=== PATIENT | male | born 1935 | race Caucasian/White ===

== ENCOUNTER 2018-01-28 18:30 | Inpatient (IN) | payer MEDICARE, OTHER ==
[~2018-01-28 18:30] MED LIST: ISOVUE-370 76%-LOCM 1 ML ONE
[2018-01-28 19:29] LABS: #Eosinphils 0.3 thou/uL (0.0-0.7); #Lymphocytes 1.3 thou/uL (1.20-3.40); #Monocytes 1.2 thou/uL (0.11-0.59); #Neutrophils 5.6 thou/uL (1.40-6.50); %Basophils 0.4 % (0.0-1.0); %Eosinophils 3.3 % (0.0-10.0); %Lymphocytes 15.9 % (21.0-51.0); %Monocytes 14.3 % (0.0-10.0); %Neutrophils 66.2 % (42.0-75.0); Hemoglobin 14.2 g/dL (14.0-18.0); Mean Corpuscular Hemoglobin 30.7 pg (27.0-31.0); Mean Corpuscular Volume 90.4 fL (78.0-98.0); Mean Platelet Volume 8.3 fL (7.4-10.4); Platelet Count 232 thou/uL (130-400); RBC Distribution Width 12.3 % (11.5-14.5); Red Blood Cell (RBC) Count 4.64 mill/uL (4.70-6.10); White Blood Cell (WBC) Count 8.4 thou/uL (4.8-10.8)
[2018-01-28 19:54] LABS: CKMB 3.6 ng/mL (0-6.6); Troponin I 0.011 ng/mL (< 0.028)
--- NOTE | 2018-01-28 20:07 | RAD ---
RIGHT FOOT THREE VIEWS: 01/28/18 HISTORY: Swelling to right foot for the last seven days. There is some arthritic changes of the first metatarsophalangeal joint. There appears to be some soft tissue calcification adjacent to this area. This may represent some changes related to gout, althoug h I do not see gross bony erosive change. There are some vascular calcifications noted. Calcaneal sp ur at the plantar fascia is noted. IMPRESSION: 1. Atherosclerosis. 2. No acute changes. 3. Arthritic changes of the first metatarsal phalangeal joint, possibly related to gout. POS: [facility]
[2018-01-28 20:09] LABS: ALT (SGPT) 97 U/L (8-55); Albumin 3.3 g/dL (3.4-4.8); Alkaline Phosphatase 354 U/L (40-150); Anion Gap 13 mmol/L (10-20); BUN (Urea Nitrogen) 23 mg/dL (8.4-25.7); Bilirubin, Total 0.9 mg/dL (0.2-1.2); Calc. Creatinine Clearance 0 mL/min (70-130); Calcium 8.8 mg/dL (7.8-10.44); Carbon Dioxide 19 mmol/L (23-31); Chloride 106 mmol/L (98-107); Estimated GFR-MDRD 59; Globulin 4.1 g/dL (2.4-3.5); Glucose 127 mg/dL (83-110); Potassium 4.3 mmol/L (3.5-5.1); Protein, Total 7.4 g/dL (5.8-8.1); Sodium 134 mmol/L (136-145)
--- NOTE | 2018-01-28 20:10 | RAD ---
CHEST PORTABLE: 01/28/18 HISTORY: Increasing shortness of breath. Heart size appears slightly enlarged. There are atherosclerosis changes or the aorta. No overt failur e seen. Interstitial markings are slightly increased but no definitely changed since a 03/20/16 study. IMPRESSION: Suggestion of some mild cardiomegaly. Mild vascular prominence but no definite overt pulmonary edema change. Interstitial changes were felt to be chronic in nature. POS: [facility]
[2018-01-28 20:20] LABS: AST (SGOT) 125 U/L (5-34)
[2018-01-28 20:53] LABS: Analyzer IN Cardio ER; Base Excess (BEa) -2.4 mEq/L (-2.0 to +3.0); CO2 Tension 28.5 mmHg (35.0-45.0); Calcium, Ionized 1.15 mmol/L (1.12-1.30); Carboxyhemoglobin (COHb) 0.5 gm% (0.0-3.0); Hemoglobin (Hb) 14.9 g/dL (14.0-18.0); O2 Tension (PaO2) 77.5 mmHg (> 60.0); Potassium - ABG Lab 3.96 mmol/L (3.70-5.30); pH, Arterial 7.46 (7.35-7.45)
[2018-01-28 20:54] LABS: ALV-art Gradient 36.605 (0-20)
--- NOTE | 2018-01-28 22:33 | CT ---
CT ANGIOGRAM OF THE CHEST: 01/28/18 COMPARISON: None available. HISTORY: Shortness of breath, swelling of right foot. TECHNIQUE: Axial CT imaging obtained 2.5 mm intervals from thoracic inlet through upper abdomen with IV contrast using a CT angiogram protocol. Coronal and oblique sagittal 3D reformatted imaging obtained. FINDINGS: Evaluation of the upper abdomen demonstrates splenic granulomata. There is scattered atherosclerotic calcifications of the imaged abdominal aorta and its branches. Detailed assessment of the upper abdom en is limited by motion. There is a small sliding type hiatal hernia. There is a moderate/large pericardial effusion measuring 3.8 cm in transverse dimension on the left. 1.6 cm in transverse dimension on the right, and 1.3 cm in craniocaudal dimension inferiorly. There is no axillary lymphadenopathy. Mild carolyn prominence in the prevascular space measures 1.1 cm short axis dimension. Mild left hilar carolyn prominence measures 1.3 cm. Motion artifact limits assessment of the distal pulmonary artery supplying bilateral lower lobes. The re is also motion artifact limiting assessment of the main pulmonary artery and the left main pulmona ry artery. There is no discrete filling defect seen to suggest the presence of a central pulmonary ar terial embolism. Coronary arterial calcification is noted as is atherosclerotic calcification of the aortic arch and t he descending thoracic aorta. Trace bilateral pleural effusions are noted. Assessment of the lung parenchyma, particularly inferior ly, is limited on the basis of motion artifact. No discrete mass lesion or pulmonary parenchymal nodule noted in the left upper lobe. Linear density in lingula suggests scar and/or volume loss. There is extensive interstitial and alveolar opacity involving the posteromedial aspect of the left l ower lobe, particularly the superior segment of the left lower lobe. Granulomata area noted in the ri ght lower lobe. Minimal focal area of ground glass opacity and interstitial linear density noted in m edial right upper lobe. There is extensive degenerative change noted within the imaged spine with multilevel disc space narro wing, degenerative end plate change and vacuum disc formation. IMPRESSION: 1. No evidence for pulmonary embolism. 2. Pulmonary parenchymal opacity noted within left lower lobe suggesting infectious pneumonitis/ aspiration. Patchy opacities are also noted in right upper lobe suspicious for infectious pneumonitis . 3. Moderate/large pericardial effusion. 4. Small bilateral pleural effusions. 5. Extensive atherosclerotic calcification of the coronary arteries. POS: [facility]
[2018-01-29] MEDS ORDERED: HYDROcodone/Acetaminophen 5/325 mg Tablet PO PRN ×2 (01:00)
[2018-01-29] MEDS ORDERED: Ondansetron ODT 4 MG TAB SL PRN (01:00)
[2018-01-29] MEDS ORDERED: Ondansetron PF 4 MG/2 ML Vial IVP PRN (01:00)
[2018-01-29] MEDS ORDERED: Acetaminophen 325 MG TAB PO PRN ×2 (01:00→01:08)
[2018-01-29] MEDS ORDERED: Ondansetron ODT 4 MG TAB PO PRN (01:08)
[2018-01-29] MEDS: Guaifenesin DM 100-10/5 ML UDCUP PO PRN (01:53)
--- NOTE | 2018-01-29 02:42 | PDOC.FPRHP ---
- History of Present Illness Chief Complaint: SOB and cough History of Present Illness: Patient is an 82YO gentleman with no significant PMH who presented to the ED after urging from his children with a CC of progressively worsening and persistent SOB and productive cough for the last 10 days. Per the patient's son , the patient has had worsening SOB with exertion for the last 3-4 months and has never had any issues like that before. Per the son the patient has always been very active and has never had any health issues. Regarding his more recent SOB and productive cough, the son reports that the patient has had URI symptoms that began ~10 days ago that have not improved with mucinex at home. The patient denies any chest pain, fever/chills, N/V, decreased appetite or weakness or fatigue. He stated that his SOB is worsened by laying flat and improves with sitting up and leaning forward. The patient does report that his daughter who he saw around [facility] was also ill. In addition, the patient reports pain and swelling in his right foot that began a few days ago. He states that the pain has been so severe he has been unable to bear weight on his foot. He denies any known mechanism of injury or any h/o gout. Also denies any systemic symptoms like fever/chills, N/V, or decreased PO intake/fatigue. ED Course: ED: 1 Duoneb treatment - Allergies/Adverse Reactions Allergies Allergy/AdvReac Type Severity Reaction Status Date / Time No Known Drug Allergies Allergy Verified 01/04/13 20:02 - Home Medications Medication Instructions Recorded Confirmed Type No Known 01/04/13 01/29/18 History - History PMHx: possible HTN, not on any meds at home PSHx: none FHx: Father- CAD, [place] @ age 67 Social: Lives at home alone w/ pet dog. 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 No tobacco, EtOH, or drug use. - Vital signs BP: 160/71 HR: 82 RR: 28 Tmax: 99.1F Pox: 95% on RA Wt: 91.943 kg - Physical Exam Constitutional: NAD, awake, alert and oriented, well developed HEENT: normocephalic and atraumatic, conjunctiva clear, grossly normal vision, grossly normal hearing, normal nasal mucosa, MMM, oropharynx clear Neck: supple, FROM, no JVD, no bruits Heart: RRR, pulses present -Heart: distant heart sounds w/ no pitting edema present Lungs: no respiratory distress, good air movement, no rales/rhonchi -Lungs: Expiratory wheezing throughout Abdomen: soft, non-tender, bowel sounds present Musculoskeletal: normal structure, ROM grossly normal Neurological: no focal deficit -Neurological: symmetric facial movements Skin: good turgor, no jaundice -Skin: edema and erythema overlying the right first metacarpophalangeal joint with TTP Heme/Lymphatic: no unusual bruising or bleeding Psychiatric: normal mood and affect, good judgment and insight -Psychiatric: slightly impaired recent and remote memory but oriented to person, place, and time FMR H&P: Results - Labs Result Diagrams: 01/28/18 19:23 01/29/18 04:49 Lab results: WBC 8.4 thou/uL (4.8-10.8) 01/28/18 19:23 Hgb 14.2 g/dL (14.0-18.0) 01/28/18 19:23 Hct 41.9 % (42.0-52.0) L 01/28/18 19:23 MCV 90.4 fL (78.0-98.0) 01/28/18 19:23 Plt Count 232 thou/uL (130-400) 01/28/18 19:23 Neutrophils % 66.2 % (42.0-75.0) 01/28/18 19:23 ABG pH 7.46 (7.35-7.45) H 01/28/18 20:45 ABG pCO2 28.5 mmHg (35.0-45.0) L 01/28/18 20:45 ABG pO2 77.5 mmHg (> 60.0) H 01/28/18 20:45 Sodium 134 mmol/L (136-145) L 01/28/18 19:23 Potassium 4.3 mmol/L (3.5-5.1) 01/28/18 19:23 Chloride 106 mmol/L (98-107) 01/28/18 19:23 Carbon Dioxide 19 mmol/L (23-31) L 01/28/18 19:23 BUN 23 mg/dL (8.4-25.7) 01/28/18 19:23 Creatinine 1.17 mg/dL (0.6-1.3) 01/28/18 19:23 Glucose 127 mg/dL (83-110) H 01/28/18 19:23 Calcium 8.8 mg/dL (7.8-10.44) 01/28/18 19:23 Total Bilirubin 0.9 mg/dL (0.2-1.2) 01/28/18 19:23 AST 125 U/L (5-34) H 01/28/18 19:23 ALT 97 U/L (8-55) H 01/28/18 19:23 Alkaline Phosphatase 354 U/L (40-150) H 01/28/18 19:23 CK-MB (CK-2) 3.6 ng/mL (0-6.6) 01/28/18 19:23 B-Natriuretic Peptide 136.3 pg/mL (0-100) H 01/28/18 19:23 Serum Total Protein 7.4 g/dL (5.8-8.1) 01/28/18 19:23 Albumin 3.3 g/dL (3.4-4.8) L 01/28/18 19:23 - EKG Interpretation EKG: sinus arrthymia, possible sick sinus syndrome - Radiology Interpretation CT scan - chest Status: report reviewed by me (- RUL & LLL possible infectious pneumonitis - B/ L pleural effusions - moderate to severe pericardial effusion) FMR H&P: A/P - Problem List (1) Aspiration pneumonitis Current Visit: Yes Status: Acute Code(s): J69.0 - PNEUMONITIS DUE TO INHALATION OF FOOD AND VOMIT (2) Pericardial effusion without cardiac tamponade Current Visit: Yes Status: Acute Code(s): I31.3 - PERICARDIAL EFFUSION ( NONINFLAMMATORY) (3) HTN (hypertension) Current Visit: Yes Status: Suspected Code(s): I10 - ESSENTIAL (PRIMARY) HYPERTENSION (4) Gout Current Visit: Yes Status: Suspected Code(s): M10.9 - GOUT, UNSPECIFIED Qualifiers: Gout site: foot Gout etiology: idiopathic Chronicity: acute Laterality : right Qualified Code(s): M10.071 - Idiopathic gout, right ankle and foot (5) Transaminitis Current Visit: Yes Status: Acute Code(s): R74.0 - NONSPEC ELEV OF LEVELS OF TRANSAMNS & LACTIC ACID DEHYDRGNSE (6) Hyponatremia Current Visit: Yes Status: Acute Code(s): E87.1 - HYPO-OSMOLALITY AND HYPONATREMIA - Plan 82YOM w/ no significant PMH who presented to the ED with a CC or persistent cough and SOB for the last 2 weeks who was found to have possible aspiration pneumonitis as well as a pericardial effusion and pulmonary edema on chest CTA. Pericardial effusion: - Moderate to large pericardial effusion noted on chest CTA. - Patient has been HD stable since admission and ECG showed diffuse ST elevation consistent w/ pericarditis. - Could be 2/2 a viral illness or undiagnosed malignancy. - Will plan to consult CV surgery in the AM for need for possible window and to evaluate fluid to ascertain a certain etiology for the effusion. - Will continue to monitor vitals closely. Suspected aspiration pneumonitis: - RUL & LLL pneumonitis also noted on CT. - Thus, this in conjunction with the patient's productive cough and diffuse wheezing led us to go ahead and start empiric abx with IV unasyn. - Will keep NPO pending a speech eval since aspiration was a possible cause for infection. - Will give PRN robitussin and tessalon for associated cough. Pulmonary edema: - Also seen on chest CT. Could be 2/2 underlying infection and/or underlying heart pathology. - Echo pending for this AM. - s/p 40mg IV lasix overnight. - IV Abx started for suspected infection. Elevated BP: - Likely undiagnosed HTN. - Will continue to monitor and start medications as indicated. Transaminitis: - LFTs elevated on admission. - Will continue to monitor w/ QD bloodwork. - Could be 2/2 NAFLD but will order hepatitis panel, RPR, and HIV as well to r/ o any underlying infectious etiology. Elevated Cr: - Cr slightly elevated at 1.13 on admission with unknown baseline. - Likely some component of CKD given age and likely uncontrolled HTN. - Will continue to monitor and dose meds as appropriate. Gout: - Uric acid pending. - Will start on TOR indomethacin. FMR H&P: Upper Level - Pertinent history 82 yo M with no significant PMHx presents with cc of worsening shortness of breath and cough over the last couple of weeks. He reports that his cough has been keeping him up more and more at night and worsening to the point his children encouraged him to come in. He has been taking Mucinex which per family , seemed to make him feel a little funny. He hasn't taken his temp but endorses subjective fever and chills. He does not go to the doctor and takes an aspirin every now and then but nothing else. He also endorses some R foot swelling that has acutely worsened over the last couple of days. He denies any history of gout and does not recall any injury to that foot. He endorses eating a lot of hamburgers recently. - Pertinent findings VSS, slightly hypertensive and HR irregularly irregular Gen: awake, alert, oriented x3 HEENT: atraumatic, normocephalic, MMM, no JVD CV: irregularly irregular rhythm, no murmur noted, heart sounds slightly distant at upper sternal borders RESP: diffuse expiratory wheezing ABD: soft, nontender, nondistended EXT: RLE with notable edema at great MCP joint and surrounding erythema - Plan Date/Time: 01/29/18 0240 82 yo M with no PMHx here with SOB 2/2 possible aspiration pneumonitis and pericardial effusion 1. Pericardial effusion: incidentally found on CTA, hemodynamically stable but notable in size. Will consult CT surg in the morning or sooner if any indication of hemodynamic instability. 2. Aspiration pneumonitis: Also noted on CT. Productive cough and diffuse wheezing. Will start antibiotics and recommend speech eval prior to diet order 3. Elevated BP: Likely underlying HTN. Continue to monitor and discuss starting meds as indicated 4. Transaminitis: Continue to monitor. Possible fatty liver 5. Elevated Cr: Unknown baseline. Likely some component of CKD. Continue to monitor and dose meds as appropriate 6. Gout: Uric acid pending. Will start on TOR indomethacin. I, Leydi Marvin MD, PGY-3, have evaluated this patient and agree with findings/ plan as outlined by strategy intern resident. Pertinent changes/additions are listed here. Attending Addendum - Attending Addendum Date/Time: 01/29/18 1116 I personally evaluated the patient and discussed the management with Dr. Fry. I agree with the History, Examination, Assessment and Plan documented above with any addition or exceptions noted below.
[2018-01-29 02:47] VITALS: BMI 29.0
[2018-01-29] MEDS ORDERED: Furosemide 40 MG/4 ML VIAL SLOW IVP SCH ×2 (03:00→16:30)
[2018-01-29] MEDS ORDERED: Furosemide 20 MG/2 ML VIAL SLOW IVP SCH (03:45)
[2018-01-29 05:25] LABS: Phosphorus 3.4 mg/dL (2.3-4.7)
[2018-01-29 05:26] LABS: ALT (SGPT) 81 U/L (8-55); AST (SGOT) 81 U/L (5-34); Albumin 3.4 g/dL (3.4-4.8); Alkaline Phosphatase 340 U/L (40-150); Anion Gap 12 mmol/L (10-20); BUN (Urea Nitrogen) 20 mg/dL (8.4-25.7); Bilirubin, Total 1.2 mg/dL (0.2-1.2); Calc. Creatinine Clearance 57 mL/min (70-130); Calcium 9.1 mg/dL (7.8-10.44); Carbon Dioxide 25 mmol/L (23-31); Chloride 104 mmol/L (98-107); Estimated GFR-MDRD 55; Globulin 3.9 g/dL (2.4-3.5); Glucose 98 mg/dL (83-110); Potassium 3.5 mmol/L (3.5-5.1); Protein, Total 7.3 g/dL (5.8-8.1); Sodium 137 mmol/L (136-145); Uric Acid 6.1 mg/dL (3.5-7.2)
[2018-01-29 05:34] LABS: Thyroid Stimulating Hormone 3.7881 uIU/mL (0.35-4.94)
[2018-01-29] MEDS: Ampicillin/Sulbactam 1.5 GM in Sodium Chloride 0.9% 100 ML IVPB SCH ×3 (06:33→18:10)
[2018-01-29] MEDS: Enoxaparin Sodium 40 MG/0.4 ML SYRINGE SC SCH (09:08)
[2018-01-29] MEDS: Indomethacin 25 mg Capsule PO SCH ×3 (09:09→21:44)
[2018-01-29 10:27] LABS: Syphilis Antibody Nonreactive (Nonreactive); Syphilis Antibody Index 0.04 S/CO (<1.00 Non-Reactive)
[2018-01-29 10:30] LABS: HBCM Index 0.05 S/CO (0-0.79); HBSAg Index 0.27 S/CO (0-0.99); HIV (1/2) Antibody/Antigen Non-Reactive (NonReactive); HIV 1/2 INDEX 0.09 S/CO (<1.00); Hep A IgM AB Non-Reactive (NonReactive); Hep A IgM S/CO 0.18 S/CO (0-0.79); Hep B Surf Ag Non-Reactive S/CO (NonReactive); Hep C IgG Ab Non-Reactive (NonReactive); Hep C Index 0.04 S/CO (0-0.79); Hepatitis B Core IgM Abs Non-Reactive (NonReactive)
[2018-01-29] MEDS: Benzonatate 100 MG CAP PO PRN (18:09)
--- NOTE | 2018-01-29 18:48 | CON ---
DATE OF CONSULTATION: 01/29/2018 REASON FOR CONSULTATION: Pericardial effusion. HISTORY OF PRESENT ILLNESS: Mr. Hernandez is a pleasant 82-year-old white gentleman, who comes to the hospital for shortness of breath and cough. He has noticed for the last 10 days upper respiratory symptoms. Eventually, he was also becoming more short of breath for the last few months. This got to the point where his family saw him over the and really wanted him to come in for evaluation, he refused, however, his shortness of breath got worse, so he was brought in for further evaluation. He actually called 911, who arrived at his house and brought him in. In the ER, he was evaluated with a CT of the chest, showed pneumonitis in the left lower lobe consistent with an acute infectious process, but he also was found to have [id number] sized pericardial effusions and Cardiology being consulted. He also was found to have swelling in his right foot, which was consistent with a gouty attack. PAST MEDICAL HISTORY: None. He may have had hypertension in the past, but he is not on any medications for anything. PAST SURGICAL HISTORY: None. OUTPATIENT MEDICATIONS: None. ALLERGIES: NO KNOWN DRUG ALLERGIES. FAMILY HISTORY: Father with an HI at age 67, otherwise noncontributory. SOCIAL HISTORY: No alcohol, tobacco, or drugs. Retired. Lives alone at home. Completely independent. REVIEW OF SYSTEMS: A 12-point review of systems is negative unless stated in the history of present illness. PHYSICAL EXAMINATION: VITAL SIGNS: Temperature 98.2, pulse 71, respiratory rate 16, satting 94% on room air, and blood pressure 151/74. GENERAL: Awake, alert, oriented x3, in no distress. HEENT: Normocephalic and atraumatic. NECK: Supple. LUNGS: Clear. CARDIOVASCULAR: S1 and S2. Distal heart sounds, but no murmurs. ABDOMEN: Soft. Positive bowel sounds. EXTREMITIES: 1+ edema. There is marked erythema on the hallux joint on the right foot, exquisitely tender to minimal palpation. SKIN: Warm and dry. LABORATORY DATA: Laboratory work was reviewed. White count of 8.4, hemoglobin of 14, hematocrit of 41, platelet count of 232. Coags; D-dimer was elevated. ABG was reviewed. Chemistry was reviewed, sodium 137, potassium 3.5, chloride of 104, carbon dioxide of 25, anion gap of 12, BUN of 20, creatinine 1.26, GFR of 55, glucose of 98, calcium of 9.1, phosphorus of 3.4, and magnesium of 2.0. AST of 81, ALT of 81, alkaline phosphatase of 340. Troponin was negative x1. BNP was 136, albumin of 3.4, procalcitonin was normal, TSH was normal. Serology; nonreactive for hepatitis A, B, or C; HIV was nonreactive; syphilis was nonreactive. Echocardiogram was reviewed earlier today. It showed mildly reduced LV function , 45-50%, grade 2/3 diastolic heart failure. There was a large pericardial effusion with no hemodynamic evidence of tamponade. CT of the chest was reviewed. There is [id number] pericardial effusion. There is no evidence of pulmonary embolism. There is parenchymal opacity on the left lower lobe suggestive of an infectious pneumonitis or aspiration. Small bilateral pleural effusions and atherosclerotic calcifications of the coronary arteries. ASSESSMENT: 1. Pericardial effusion: No tamponade physiology. This process has been going on for some time now, most likely related to his acute infectious process. 2. Reduced ejection fraction: He will need ischemic workup once better from the lung perspective. He has chronic calcifications in the CT of the chest as well as mildly reduced EF with inferior hypokinesis. More than likely, he has significant coronary artery disease. 3. Left lower lobe pneumonia/pneumonitis/aspiration. Per primary team, we are ordering antibiotics. PLAN: 1. Continue to monitor on telemetry. Continue to monitor vital signs closely. Currently, he is not in tamponade. He does not have tamponade physiology. I would recommend against doing window for now, we will monitor every day and we will decide depending on his clinical evolution. I would agree to give 1 dose of IV Lasix to see if a little bit of diuresis makes his breathing a little bit better, although his pleural effusions are minimal if any. More than likely, his shortness of breath is coming from the pneumonitis. 2. If his blood pressure starts to come down, we will have the surgeons do a window, otherwise continue conservative therapy for now. 3. Coronary artery disease: Chronic calcifications in the CT. We will need workup as above. Thank you for allowing me to participate in the care of this patient. We will follow. Job ID: [id number] [facility]S HOSPITALRosalee
[2018-01-30] MEDS: Ampicillin/Sulbactam 1.5 GM in Sodium Chloride 0.9% 100 ML IVPB SCH ×2 (00:29→06:49)
--- NOTE | 2018-01-30 05:48 | PDOC.FM ---
- Subjective Subjective: Patient doing well this AM. No significant overnight events. Patient states his cough has improved. He feels like he is breathing better. Patient denies chest pain. He is in good spirits. - Objective MAR Reviewed: Yes Vital Signs & Weight: Vital Signs (12 hours) Temp Pulse Resp BP Pulse Ox 01/30/18 04:00 97.9 F 87 20 142/80 H 95 01/30/18 00:00 98.4 F 64 16 146/79 H 94 L 01/29/18 22:31 84 20 93 L 01/29/18 20:55 93 L 01/29/18 20:00 98.4 F 61 20 135/82 93 L 01/29/18 18:55 80 16 Weight Weight 91.943 kg I&O: 01/28/18 01/29/18 01/30/18 06:59 06:59 06:59 Intake Total 80 769 Balance 80 769 Result Diagrams: 01/28/18 19:23 01/29/18 04:49 EKG Reviewed by me: Yes Radiology Reviewed by me: Yes <Diana Castillo - Last Filed: 01/30/18 11:43> - Objective Vital Signs & Weight: Vital Signs (12 hours) Temp Pulse Resp BP Pulse Ox 01/30/18 15:35 97.7 F 69 16 160/60 H 94 L 01/30/18 11:41 97.9 F 82 16 150/77 H 96 01/30/18 10:39 82 16 01/30/18 09:30 82 152/79 H 01/30/18 08:50 99 01/30/18 08:00 97.8 F 63 16 188/79 H 99 01/30/18 07:13 68 24 H 01/30/18 04:00 97.9 F 87 20 142/80 H 95 Weight Weight 91.943 kg I&O: 01/29/18 01/30/18 01/31/18 06:59 06:59 06:59 Intake Total 80 769 Output Total 375 Balance 80 769 -375 Result Diagrams: 01/28/18 19:23 01/29/18 04:49 <Kar Antoine - Last Filed: 01/30/18 15:55> Phys Exam - Physical Examination Constitutional: NAD Alert and oriented x3 HEENT: PERRLA, moist MMs Neck: supple Respiratory: no wheezing Good air movement Irregular rhythm Gastrointestinal: soft Musculoskeletal: no edema, pulses present Neurological: non-focal, moves all 4 limbs Psychiatric: normal affect, A&O x 3 Deviation from normal: Right big toe podagra which is improved from yesterday <JonathanDiana - Last Filed: 01/30/18 11:43> Dx/Plan (1) Aspiration pneumonitis Code(s): J69.0 - PNEUMONITIS DUE TO INHALATION OF FOOD AND VOMIT Status: Acute (2) Pericardial effusion without cardiac tamponade Code(s): I31.3 - PERICARDIAL EFFUSION (NONINFLAMMATORY) Status: Acute (3) Hyponatremia Code(s): E87.1 - HYPO-OSMOLALITY AND HYPONATREMIA Status: Acute (4) Transaminitis Code(s): R74.0 - NONSPEC ELEV OF LEVELS OF TRANSAMNS & LACTIC ACID DEHYDRGNSE Status: Acute (5) Gout Code(s): M10.9 - GOUT, UNSPECIFIED Status: Suspected Qualifiers: Gout site: foot Gout etiology: idiopathic Chronicity: acute Laterality : right Qualified Code(s): M10.071 - Idiopathic gout, right ankle and foot (6) HTN (hypertension) Code(s): I10 - ESSENTIAL (PRIMARY) HYPERTENSION Status: Suspected - Plan Plan: 82YOM w/ no significant PMH who presented to the ED with a CC or persistent cough and SOB for the last 2 weeks who was found to have possible aspiration pneumonitis as well as a pericardial effusion and pulmonary edema on chest CTA. Pericardial effusion: - Moderate to large pericardial effusion noted on chest CTA. - Patient has been HD stable since admission and ECG showed diffuse ST elevation consistent w/ pericarditis. - Could be 2/2 a viral illness or undiagnosed malignancy. - Cardiology consulted; appreciate recs, patient HD stable and no evidence of cardiac tamponade on echocardiogram. Plan to monitor pericardial effusion as outpatient. Patient will also need ischemic workup at some point, as there is concern he has severe CAD based on calcifications on CT. - Continue indomethacin for treatment of pericarditis Suspected aspiration pneumonitis vs pneumonia: - RUL & LLL pneumonitis vs pneumonia noted on CT. - Pt improved on unasyn. Will transition to augmentin. - Speech therapy recs include mechanical soft diet and thick liquids to reduce risk of aspiration - Will give PRN robitussin and tessalon for associated cough. Pulmonary edema: - Also seen on chest CT. Could be 2/2 underlying infection and/or underlying heart pathology. - Echo showed EF 45-50%. - Additional dose of IV lasix given yesterday - BNP 136 Elevated BP: - Likely undiagnosed HTN. - Will continue to monitor and start medications as indicated. BP this AM 142/ 80. Transaminitis: - LFTs elevated on admission. - Hep panels and RPR negative. - Down trending; may have been secondary to recent viral illness Elevated Cr: - Cr slightly elevated at 1.13 on admission with unknown baseline. - Likely some component of CKD given age and likely uncontrolled HTN. Gout: - Uric acid level nml - Improved with indomethacin Dispo: Stable and improved from respiratory standpoint. Will await final recs from cardiology regarding next course of action from cardiac standpoint. <Diana Castillo - Last Filed: 01/30/18 11:43> (1) Aspiration pneumonitis Code(s): J69.0 - PNEUMONITIS DUE TO INHALATION OF FOOD AND VOMIT Status: Acute (2) Pericardial effusion without cardiac tamponade Code(s): I31.3 - PERICARDIAL EFFUSION (NONINFLAMMATORY) Status: Acute (3) HTN (hypertension) Code(s): I10 - ESSENTIAL (PRIMARY) HYPERTENSION Status: Suspected (4) Gout Code(s): M10.9 - GOUT, UNSPECIFIED Status: Suspected Qualifiers: Gout site: foot Gout etiology: idiopathic Chronicity: acute Laterality : right Qualified Code(s): M10.071 - Idiopathic gout, right ankle and foot (5) Transaminitis Code(s): R74.0 - NONSPEC ELEV OF LEVELS OF TRANSAMNS & LACTIC ACID DEHYDRGNSE Status: Acute (6) Hyponatremia Code(s): E87.1 - HYPO-OSMOLALITY AND HYPONATREMIA Status: Acute <Kar Antoine - Last Filed: 01/30/18 15:55> Attending Addendum - Attending Addendum Date/Time: 01/30/18 9213 I personally evaluated the patient and discussed the management with Dr. Castillo. I agree with the History, Examination, Assessment and Plan documented above with any addition or exceptions noted below. <Kar Antoine Last Filed: 01/30/18 15:55>
[2018-01-30] MEDS: Indomethacin 25 mg Capsule PO SCH ×3 (08:59→20:32)
[2018-01-30] MEDS: Enoxaparin Sodium 40 MG/0.4 ML SYRINGE SC SCH (08:59)
[2018-01-30] MEDS ORDERED: Prevnar 13-Val Conj/PF 0.5 ML SYRINGE IM ONE (09:00)
[2018-01-30] MEDS: Benzonatate 100 MG CAP PO PRN (09:04)
[2018-01-30] MEDS: Guaifenesin DM 100-10/5 ML UDCUP PO PRN (12:49)
--- NOTE | 2018-01-30 16:14 | PDOC.CTH ---
Cardiology Progress Note - Subjective He is doing much better. He feels better now. Breathing better but still coughing. - Objective Vital Signs Temp Pulse Resp BP Pulse Ox 01/30/18 16:07 69 16 01/30/18 15:35 97.7 F 69 16 160/60 H 94 L 01/30/18 11:41 97.9 F 82 16 150/77 H 96 01/30/18 10:39 82 16 01/30/18 09:30 82 152/79 H 01/30/18 08:50 99 01/30/18 08:00 97.8 F 63 16 188/79 H 99 01/30/18 07:13 68 24 H Weight 202 lb 11.2 oz 01/29/18 01/30/18 01/31/18 06:59 06:59 06:59 Intake Total 80 769 Output Total 375 Balance 80 769 -375 - Physical Examination General/Neuro: alert & oriented x3, NAD Neck: no JVD present Lungs: unlabored respirations, other: (crackles at left base. ) Heart: RRR Abdomen: NT/ND Extremities: other: (no edema) - Telemetry Telemetry Rhythm: NSR - Labs Result Diagrams: 01/28/18 19:23 01/29/18 04:49 Troponin/CKMB CK-MB (CK-2) 3.6 ng/mL (0-6.6) 01/28/18 19:23 Troponin I 0.011 ng/mL (< 0.028) 01/28/18 19:23 - Assessment/Plan 1. Pericardial effusion, possible pericarditis, no symptoms to suggest. 2. Mild cardiomyopathy EF at 45-50%, inferior hypokinesis suggestive of ischemia. 3. LLL pneumonia/pneumonitis. 4. CAD, coronary calcifications on CT chest. No ACS at this time. 5. Gout PLAN: - Continue abx per primary team. - Indomethacine for gout and possible pericarditis. - Will give one more dose of IV lasix today. - Will need ischemic work up and follow up of effusion in 4 weeks. - On discharge he will need to follow up in 4 weeks with me with repeat echo pre clinic. Will set this up with him next week.
[2018-01-30] MEDS ORDERED: Furosemide 40 MG/4 ML VIAL SLOW IVP SCH (16:30)
[2018-01-30] MEDS: Amoxicillin/Potassium Clav 875 MG TAB PO SCH (20:31)
--- NOTE | 2018-01-31 06:54 | PDOC.FM ---
- Subjective Subjective: Patient doing well this AM. No significant overnight events. He is excited to be going home. His cough and shortness of breath have improved. - Objective MAR Reviewed: Yes Vital Signs & Weight: Vital Signs (12 hours) Temp Pulse Resp BP Pulse Ox 01/31/18 06:23 73 12 01/31/18 04:00 97.5 F L 94 20 134/82 92 L 01/31/18 02:07 80 16 98 01/31/18 00:00 98.0 F 92 19 155/85 H 95 01/30/18 22:03 79 14 01/30/18 20:31 93 L 01/30/18 20:00 98.7 F 78 18 149/85 H 93 L Weight Weight 88.314 kg I&O: 01/29/18 01/30/18 01/31/18 06:59 06:59 06:59 Intake Total 80 769 520 Output Total 950 Balance 80 769 -430 Result Diagrams: 01/28/18 19:23 01/29/18 04:49 EKG Reviewed by me: Yes Radiology Reviewed by me: Yes <Diana Castillo - Last Filed: 01/31/18 12:39> - Objective Vital Signs & Weight: Vital Signs (12 hours) Temp Pulse Resp BP Pulse Ox 01/31/18 13:30 158/65 H 01/31/18 11:48 97.8 F 84 18 94 L 01/31/18 10:49 73 12 01/31/18 08:55 97.9 F 16 125/60 92 L 01/31/18 06:23 73 12 01/31/18 04:00 97.5 F L 94 20 134/82 92 L Weight Weight 88.314 kg I&O: 01/30/18 01/31/18 02/01/18 06:59 06:59 06:59 Intake Total 769 520 Output Total 950 Balance 769 -430 Result Diagrams: 01/28/18 19:23 01/29/18 04:49 <Faith Mark - Last Filed: 01/31/18 14:31> Phys Exam - Physical Examination Constitutional: NAD HEENT: moist MMs Neck: supple Respiratory: no wheezing, clear to auscultation bilateral Irregular rhythm Gastrointestinal: soft, non-tender, no distention, positive bowel sounds Musculoskeletal: no edema, pulses present Neurological: non-focal, moves all 4 limbs Lymphatic: no nodes Psychiatric: normal affect, A&O x 3 Deviation from normal: Right first toe erythema and warmth improved <JonathanDiana - Last Filed: 01/31/18 12:39> Dx/Plan (1) Aspiration pneumonitis Code(s): J69.0 - PNEUMONITIS DUE TO INHALATION OF FOOD AND VOMIT Status: Acute (2) Pericardial effusion without cardiac tamponade Code(s): I31.3 - PERICARDIAL EFFUSION (NONINFLAMMATORY) Status: Acute (3) Hyponatremia Code(s): E87.1 - HYPO-OSMOLALITY AND HYPONATREMIA Status: Acute (4) Transaminitis Code(s): R74.0 - NONSPEC ELEV OF LEVELS OF TRANSAMNS & LACTIC ACID DEHYDRGNSE Status: Acute (5) Gout Code(s): M10.9 - GOUT, UNSPECIFIED Status: Suspected Qualifiers: Gout site: foot Gout etiology: idiopathic Chronicity: acute Laterality : right Qualified Code(s): M10.071 - Idiopathic gout, right ankle and foot (6) HTN (hypertension) Code(s): I10 - ESSENTIAL (PRIMARY) HYPERTENSION Status: Suspected - Plan Plan: 82YOM w/ no significant PMH who presented to the ED with a CC or persistent cough and SOB for the last 2 weeks who was found to have possible aspiration pneumonitis as well as a pericardial effusion and pulmonary edema on chest CTA. Pericardial effusion: - Moderate to large pericardial effusion noted on chest CTA. - Patient has been HD stable since admission and ECG showed diffuse ST elevation consistent w/ pericarditis. - Could be 2/2 a viral illness or undiagnosed malignancy. - Cardiology consulted; appreciate recs, patient HD stable and no evidence of cardiac tamponade on echocardiogram. Plan to monitor pericardial effusion as outpatient. Patient will also need ischemic workup at some point, as there is concern he has severe CAD based on calcifications on CT. Plan currently is for patient to follow with Dr. Fulton in 4 weeks to have ischemic workup done and repeat echo performed. Dr. Fulton's office is going to call patient next week to have this set up. - Continue indomethacin for treatment of pericarditis Suspected aspiration pneumonitis vs pneumonia: - RUL & LLL pneumonitis vs pneumonia noted on CT. - Pt improved on unasyn. Transitioned to augmentin yesterday. Will continue for additional 7 days. - Speech therapy recs include mechanical soft diet and thick liquids to reduce risk of aspiration - Will give PRN robitussin and tessalon for associated cough. Pulmonary edema: - Also seen on chest CT. Could be 2/2 underlying infection and/or underlying heart pathology. - Echo showed EF 45-50%. - Additional dose of IV lasix given yesterday - BNP 136 Elevated BP: - Likely undiagnosed HTN. - BP has been reasonably well controlled; follow up outpatient. Transaminitis: - LFTs elevated on admission. - Hep panels and RPR negative. - Down trending; may have been secondary to recent viral illness Elevated Cr: - Cr slightly elevated at 1.13 on admission with unknown baseline. - Likely some component of CKD given age and likely uncontrolled HTN. Gout of great toe on right: - Uric acid level nml - Improved with indomethacin Dispo: Stable and improved from respiratory standpoint. Patient is to follow up with cardiology in 4 weeks. Plan for d/c home today. <Diana Castillo - Last Filed: 01/31/18 12:39> Attending Addendum - Attending Addendum Date/Time: 01/31/18 1430 I personally evaluated the patient and discussed the management with Dr. Castillo. I agree with the History, Examination, Assessment and Plan documented above with any addition or exceptions noted below. The patient is ready to go home. He has been cleared by cardiology. <Faith Mark - Last Filed: 01/31/18 14:31>
[2018-01-31] MEDS: Amoxicillin/Potassium Clav 875 MG TAB PO SCH (08:59)
[2018-01-31] MEDS: Enoxaparin Sodium 40 MG/0.4 ML SYRINGE SC SCH (08:59)
[2018-01-31] MEDS: Indomethacin 25 mg Capsule PO SCH (08:59)
[2018-01-31] MEDS ORDERED: Docusate 100 MG CAP PO PRN (12:27)
[2018-01-31 13:40] VITALS: BP 158/65
--- NOTE | 2018-01-31 15:29 | EKG ---
Test Reason : Blood Pressure : / mmHG Vent. Rate : 092 BPM Atrial Rate : 092 BPM P-R Int : 154 ms QRS Dur : 092 ms QT Int : 358 ms P-R-T Axes : 042 010 038 degrees QTc Int : 442 ms Sinus rhythm with marked sinus arrhythmia with occasional , and consecutive Premature ventricular com plexes and Fusion complexes Abnormal ECG Confirmed by KARLA MURRAY DO ([id number]), electronic news gathering editor RHEA CASILLAS ([id number]) on 01/31/2018 3:28:49 PM Referred By: Confirmed By:KARLA MURRAY DO
[2018-01-31 15:44] VITALS: TEMP 97.9
[2018-01-31] MEDS ORDERED: Docusate 100 MG CAP PO SCH (21:00)
== END 2018-01-31 15:55 | disposition home or self-care (01) | DRG 178 ==
LOC: ERS 18:30 → 2SE 01-29 01:03 → OBSVTOIN 01-29 10:58
PROVIDERS: ADMIT Emergency Medicine; ATTEND Emergency Medicine
DX: J69.0 Pneumonitis due to inhalation of food and vomit (principal); I31.3 Pericardial effusion (noninflammatory); E87.1 Hypo-osmolality and hyponatremia; I42.9 Cardiomyopathy, unspecified; I10 Essential (primary) hypertension; M10.071 Idiopathic gout, right ankle and foot; R74.0 Nonspecific elevation of levels of transaminase and lactic acid dehydrogenase [LDH]; I25.10 Atherosclerotic heart disease of native coronary artery without angina pectoris; I25.84 Coronary atherosclerosis due to calcified coronary lesion; Z82.49 Family history of ischemic heart disease and other diseases of the circulatory system
CPT/HCPCS: 36415; 71045; 71275; 80053; 80074; 82553; 82805; 83735; 83880; 84100; 84145; 84443; 84484; 84550; 85025; 85379; 86780; 87389; 90471; 90662; 90670; 93005; 93306; 94640; G0008; G0009; G8996-GN-CI; G8997-GN-CI; G8998-GN-CI; J0295; J1650; J1940; J7050; J7620; Q0162

== ENCOUNTER 2018-02-09 15:35 | Outpatient (CLI) | payer OTHER ==
--- NOTE | 2018-02-09 17:38 | RAD ---
TWO VIEW CHEST: Comparison: 01-20-18 History: Pneumonia due to infectious organism. FINDINGS: There is mild patchy left basilar density with pleural based density, as well. Cardiac silhouette is mildly enlarged with mild prominence of central pulmonary vasculature. Vascular calcification is pres ent. There is osseous degenerative change. IMPRESSION: Mild patchy left basilar density which may relate to sequellae from pneumonia given clinical history. Adjacent pleural based density suggests small layering left pleural fluid. POS: C
== END 2018-02-09 15:36 | disposition home or self-care (01) ==
LOC: BICRAD 15:35
PROVIDERS: ATTEND Family Medicine
DX: J18.9 Pneumonia, unspecified organism (principal); R91.8 Other nonspecific abnormal finding of lung field
CPT/HCPCS: 71046

== ENCOUNTER 2018-10-20 18:41 | Emergency (ER) | payer OTHER ==
[~2018-10-20 18:41] MED LIST changes: +Iopamidol 370 76% 50 ML VIAL FS ONE
[2018-10-20 19:51] LABS: #Eosinphils 0.4 thou/uL (0.0-0.7); #Lymphocytes 1.4 thou/uL (1.20-3.40); #Monocytes 0.7 thou/uL (0.11-0.59); #Neutrophils 4.7 thou/uL (1.40-6.50); %Basophils 0.5 % (0.0-1.0); %Eosinophils 5.2 % (0.0-10.0); %Lymphocytes 19.5 % (21.0-51.0); %Monocytes 9.8 % (0.0-10.0); Hemoglobin 15.3 g/dL (14.0-18.0); Mean Corpuscular HGB CONC 34.6 g/dL (32.0-36.0); Mean Corpuscular Hemoglobin 31.1 pg (27.0-31.0); Mean Corpuscular Volume 89.9 fL (78.0-98.0); Mean Platelet Volume 7.7 fL (7.4-10.4); Platelet Count 175 thou/uL (130-400); Red Blood Cell (RBC) Count 4.94 mill/uL (4.70-6.10); White Blood Cell (WBC) Count 7.2 thou/uL (4.8-10.8)
[2018-10-20 20:12] LABS: ALT (SGPT) 16 U/L (8-55); AST (SGOT) 29 U/L (5-34); Albumin 3.9 g/dL (3.4-4.8); Alkaline Phosphatase 87 U/L (40-150); Anion Gap 15 mmol/L (10-20); BUN (Urea Nitrogen) 19 mg/dL (8.4-25.7); Bilirubin, Total 0.6 mg/dL (0.2-1.2); Calc. Creatinine Clearance 0 mL/min (70-130); Calcium 9.1 mg/dL (7.8-10.44); Carbon Dioxide 23 mmol/L (23-31); Chloride 101 mmol/L (98-107); Estimated GFR-MDRD 42; Globulin 3.7 g/dL (2.4-3.5); Glucose 93 mg/dL (83-110); Lipase 20 U/L (8-78); Potassium 4.9 mmol/L (3.5-5.1); Protein, Total 7.6 g/dL (5.8-8.1); Sodium 134 mmol/L (136-145)
[2018-10-20 20:21] LABS: Bilirubin Negative (Negative); Blood, Urine Negative (Negative); Clarity Clear (Clear); Glucose, Urine (Dipstick) Normal (Negative); Leukocyte Negative Leu/uL (Negative); Nitrite Negative (Negative); Protein, Urine (Dipstick) Negative (Neg-Trace); Urobilinogen Normal mg/dL (Less than 2)
[2018-10-20] MEDS ORDERED: Ondansetron PF 4 MG/2 ML Vial ONE (21:24)
[2018-10-20] MEDS ORDERED: Morphine 4 MG/ML VIAL ONE (21:24)
--- NOTE | 2018-10-21 00:01 | CT ---
CT of abdomen and pelvis: 10/20/2018 COMPARISON: CT abdomen and pelvis 01/04/[address] chest 01/28/2018 HISTORY: Right groin pain TECHNIQUE: Axial CT imaging at 5 mm intervals from lung bases through pubic symphysis with IV and ora l contrast. Coronal reformatted imaging obtained. FINDINGS: There is a moderate-sized pericardial effusion, decreased in size when compared to the 01/[address] The visualized lung bases are unremarkable. No free intraperitoneal air or fluid. Numerous splenic granulomata noted. The liver, gallbladder, pancreas, adrenal glands, and kidneys dem onstrate no acute findings. There is an inguinal hernia on the right containing fat as well as the appendix. The cecal apex exten ds into this right inguinal hernia. This hernia extends into the superior aspect of the right scrotal sac and measures approximately 2.5 cm in transverse dimension and at least 11 cm in craniocau obed dimension. There is diverticulosis of the sigmoid colon with no evidence for diverticulitis. No focal area of alana wel inflammatory change. No evidence for bowel obstruction or appendicitis. There is significant atherosclerotic calcification of the abdominal aorta and its branches. There is no lymphadenopathy noted in the abdomen or pelvis. Review of the osseous structures demonstrates degenerative change throughout the imaged spine. There is no worrisome lytic or blastic bone lesion. IMPRESSION: Inguinal hernia on the right containing fat as well as a portion of the cecal apex and th e appendix. No evidence for bowel inflammatory change or bowel obstruction. Numerous additional findings as detailed above.
== END 2018-10-21 00:23 | disposition home or self-care (01) ==
LOC: ERS 18:41
DX: K40.90 Unilateral inguinal hernia, without obstruction or gangrene, not specified as recurrent (principal)
CPT/HCPCS: 36415; 74177; 80053; 81003; 83690; 85025; J2270; J2405; Q9966; Q9967

== ENCOUNTER 2018-10-29 08:37 | Outpatient (CLI) | payer OTHER | END 2018-10-29 08:38 | disposition home or self-care (01) | LOC: LABBT 08:37 | PROVIDERS: ATTEND Surgery | DX: Z01.818 Encounter for other preprocedural examination (principal); K40.90 Unilateral inguinal hernia, without obstruction or gangrene, not specified as recurrent | CPT/HCPCS: 93005; 93010 ==

== ENCOUNTER 2018-11-01 11:46 | Inpatient (IN) | payer MEDICARE, OTHER ==
[2018-11-01 12:35] LABS: #Eosinphils 0.2 thou/uL (0.0-0.7); #Lymphocytes 1.5 thou/uL (1.20-3.40); #Monocytes 0.7 thou/uL (0.11-0.59); #Neutrophils 4.4 thou/uL (1.40-6.50); %Basophils 0.2 % (0.0-1.0); %Eosinophils 3.4 % (0.0-10.0); %Lymphocytes 21.9 % (21.0-51.0); %Monocytes 9.9 % (0.0-10.0); %Neutrophils 64.5 % (42.0-75.0); Hemoglobin 15.8 g/dL (14.0-18.0); Mean Corpuscular HGB CONC 34.1 g/dL (32.0-36.0); Mean Corpuscular Hemoglobin 31.1 pg (27.0-31.0); Mean Platelet Volume 7.7 fL (7.4-10.4); Platelet Count 191 thou/uL (130-400); RBC Distribution Width 12.3 % (11.5-14.5); Red Blood Cell (RBC) Count 5.08 mill/uL (4.70-6.10); White Blood Cell (WBC) Count 6.8 thou/uL (4.8-10.8)
[2018-11-01 12:57] LABS: ALT (SGPT) 16 U/L (8-55); AST (SGOT) 21 U/L (5-34); Alkaline Phosphatase 90 U/L (40-150); Anion Gap 12 mmol/L (10-20); BUN (Urea Nitrogen) 17 mg/dL (8.4-25.7); Bilirubin, Total 0.6 mg/dL (0.2-1.2); Calc. Creatinine Clearance 0 mL/min (70-130); Calcium 9.2 mg/dL (7.8-10.44); Carbon Dioxide 24 mmol/L (23-31); Chloride 105 mmol/L (98-107); Estimated GFR-MDRD 49; Globulin 2.9 g/dL (2.4-3.5); Glucose 82 mg/dL (83-110); Potassium 4.3 mmol/L (3.5-5.1); Protein, Total 6.9 g/dL (5.8-8.1); Sodium 137 mmol/L (136-145)
--- NOTE | 2018-11-01 13:30 | RAD ---
FRONTAL RADIOGRAPH CHEST: Date: 11/01/18 COMPARISON: 02/09/18. HISTORY: Chest pain. FINDINGS: Mild stable increased linear interstitial density and pulmonary hyperinflated. Atherosclerotic calcif ication of aortic arch noted. No pneumothorax, pleural fluid, focal consolidation, or alveolar edema. IMPRESSION: Stable appearance of the chest. POS: OFF
[2018-11-01] MEDS ORDERED: Aspirin Chewable 81 MG TAB ONE (14:18)
[2018-11-01] MEDS ORDERED: Ondansetron PF 4 MG/2 ML Vial IVP PRN (16:50)
[2018-11-01] MEDS ORDERED: Ondansetron ODT 4 MG TAB SL PRN (16:50)
[2018-11-01] MEDS ORDERED: Acetaminophen 325 MG TAB PO PRN (16:50)
[2018-11-01 16:52] VITALS: BMI 28.0
[2018-11-01 19:13] LABS: Troponin I Less than 0.010 ng/mL (< 0.028)
--- NOTE | 2018-11-01 23:10 | HP ---
PRIMARY CARE PHYSICIAN: Dr. Flaco Spence. CHIEF COMPLAINT: Chest pain and shortness of breath. HISTORY OF PRESENT ILLNESS: This is an 83-year-old patient of Dr. Flaco Spence and commissioning specialist Dr. Fulton, presents to the emergency department for the above complaints. The patient was recently found to have an inguinal hernia about 2 weeks ago here in the emergency department. He had scheduled repair with Dr. Benoit. During a preoperative evaluation, he was found to have abnormal EKG and recommended cardiac clearance. He was evaluated by Dr. Fulton, who recommended a heart catheterization, which was to be scheduled later on this week. Over the past few days, he has developed increasing chest pains and shortness of breath, worsened over the past 3 days. The patient and the son admitted him having on and off episodes of nausea and dizziness, which has been going on for several months, but seems to be worsening over the past 3 days. He has had more episodes of chest pain even at rest, shortness of breath with exertion and some numbness in his left arm that would come and go. He does admit to working hard outside in the heat over the past few weeks, even cutting his grass and helping neighbors cut their grass. He states he is drinking enough water and does not feel lightheaded while he is working, but worse while he is at rest. Of note, during an evaluation in January 2018, he was found to have abnormal echocardiogram with ejection fraction of 40-45%, as well as a large pericardial effusion. Followups were scheduled with Dr. Fulton, but uncertain if he had a followup echocardiogram since that time. PAST MEDICAL HISTORY: 1. Inguinal hernia. 2. Hypothyroidism, not treated at this time. 3. History of vertigo in the past. 4. Cardiomyopathy. 5. Pericardial effusion. MEDICATIONS: None. PAST SURGICAL HISTORY: Colonoscopy in 2013. Hospitalizations for bleeding polyp in 2013, pneumonia in 2018, dizziness in 2017. SOCIAL HISTORY: He is . He has children. He works on a farm. Nonsmoking and no alcohol. No drug use. Daily caffeine intake. FAMILY HISTORY: Father at 67 years of age of heart attack. Mother at 92 from pancreatic cancer. Brother at 83 from complications of smoking. REVIEW OF SYSTEMS: CONSTITUTIONAL: As per the history of present illness. He denies any recent illness or upper respiratory symptoms. HEENT: Denies headache, visual or hearing changes. CARDIAC: As per the history of present illness. He denies palpitations. Workup has been initiated by Dr. Fulton as an outpatient. PULMONARY: No cough. Occasional episodes of shortness of breath. No hemoptysis. GI: Denies nausea, vomiting, abdominal pain, melena, or hematochezia. : Some urinary issues at times, but no dysuria. No hematuria. NEUROLOGIC: Some weakness, some dizziness. Episodes of vertigo in the past. No seizures or syncope. MUSCULOSKELETAL: Denies joint pains. PSYCHIATRIC: Denies depression or anxiety. PHYSICAL EXAMINATION: VITAL SIGNS: Temperature 97.6, pulse of 58-67, respirations 20, and blood pressure 168/77. GENERAL: He is awake and alert. No acute distress. Speech is clear. HEENT: Mucosa is moist. NECK: Supple. No JVD, adenopathy, or bruits. HEART: Regular rate and rhythm without murmur to auscultation. LUNGS: Clear bilaterally. No wheeze, rales, or rhonchi. ABDOMEN: Positive bowel sounds. Soft, nontender, and nondistended. No hepatosplenomegaly. EXTREMITIES: 1+ pitting edema bilaterally. 2+ peripheral pulses. No calf tenderness. NEUROLOGIC: Cranial nerves 2 through 12 are grossly intact. Strength is 5/5 in upper and lower extremities. LABORATORY DATA: Sodium 137, potassium 4.3, chloride 105, CO2 of 24, BUN and creatinine are 17 and 1.39 with a GFR of 49, serum glucose of 82, calcium of 9.2. Troponin I 0.028 and 0.020. Albumin of 4.0. White blood cell count 6.8, hemoglobin and hematocrit 15.8 and 46.2, and platelets of 191. IMAGING DATA: Chest x-ray showed mild cardiomegaly. No other acute findings. Echocardiogram as reported from January 2018 revealed ejection fraction of 45-50%. Grade 2/3 diastolic dysfunction, inferior hypokinesis, moderately dilated left atrium, large pericardial effusion with no evidence of tamponade. ASSESSMENT AND PLAN: This is an 83-year-old gentleman with progressively worsening symptoms including shortness of breath and weakness. He does have a history of a pericardial effusion in January of 2018. 1. Pericardial effusion. We will repeat echocardiogram. Consult Cardiology for evaluation. 2. Cardiomyopathy. I will check BNP. May give trial of diuresis to see if he improves symptomatically. 3. Inguinal hernia. Continue followup with Dr. Benoit for repair once his cardiac status is stable. 4. Stage 3 chronic kidney disease. We will monitor closely and adjust medicines appropriately. 5. Code status. He desires full code. Job ID: [id number]
[2018-11-02] MEDS: cloNIDine 0.1 MG TAB PO PRN ×2 (01:31→19:54)
[2018-11-02] MEDS ORDERED: Iopamidol 370 76% 50 ML VIAL FS ONE (07:26)
[2018-11-02] MEDS ORDERED: Iopamidol 370 76% 100 ML VIAL ONE (07:26)
[2018-11-02 07:43] LABS: ALT (SGPT) 16 U/L (8-55); AST (SGOT) 23 U/L (5-34); Albumin 4.1 g/dL (3.4-4.8); Alkaline Phosphatase 93 U/L (40-150); Anion Gap 13 mmol/L (10-20); BUN (Urea Nitrogen) 19 mg/dL (8.4-25.7); Bilirubin, Total 0.7 mg/dL (0.2-1.2); Calc. Creatinine Clearance 48 mL/min (70-130); Calcium 9.5 mg/dL (7.8-10.44); Carbon Dioxide 26 mmol/L (23-31); Chloride 104 mmol/L (98-107); Estimated GFR-MDRD 48; Globulin 3.4 g/dL (2.4-3.5); Glucose 85 mg/dL (83-110); Protein, Total 7.5 g/dL (5.8-8.1); Sodium 139 mmol/L (136-145)
[2018-11-02 08:00] LABS: Free T4 (Free Thyroxine) 0.88 ng/dL (0.70-1.48); Thyroid Stimulating Hormone 9.2391 uIU/mL (0.35-4.94)
[2018-11-02] MEDS ORDERED: Prevnar 13-Val Conj/PF 0.5 ML SYRINGE IM ONE (09:00)
[2018-11-02] MEDS ORDERED: Verapamil 5 MG/2 ML VIAL ONE (10:40)
[2018-11-02] MEDS ORDERED: Heparin 10,000 UNITS/1 ML VIAL ONE (10:40)
[2018-11-02] MEDS ORDERED: Nitroglycerin 100MG/250ML BOT 250 ML ONE (10:41)
[2018-11-02] MEDS ORDERED: Lidocaine 1% (PF) 30 ML VIAL ONE (10:41)
--- NOTE | 2018-11-02 11:06 | CON ---
DATE OF CONSULTATION: 11/02/2018 REASON FOR CONSULTATION: Chest pain. HISTORY OF PRESENT ILLNESS: Mr. Hernandez is a pleasant 83-year-old white gentleman, who comes to the hospital for chest pain and tightness. He had been evaluated in the past. He had a pericardial effusion and reduced EF at 45% to 50%. He was offered a heart catheterization. This was actually set up, and for some reason, this was canceled. He never rescheduled. He recently was diagnosed with a hernia and Dr. Benoit was planning to surgery on him; however, he wanted surgical clearance because we had planned to do a heart catheterization before and he had an effusion and a low EF. I decided to repeat an echo before any surgeries were done and his EF is actually getting lower at 40% to 45% with inferior akinesis and he still has a [id number] sized pericardial effusion. Because of this, he was called and we had set up his heart catheterization for Friday at 7:00 a.m.; however, he developed chest pain yesterday, so he decided to come in for this. PAST MEDICAL HISTORY: 1. Inguinal hernia. 2. Hypothyroidism. 3. Vertigo. 4. Cardiomyopathy. 5. Pericardial effusion. OUTPATIENT MEDICATIONS: None. SURGICAL HISTORY: 1. Colonoscopy in 2013. 2. Pneumonia in 2018. SOCIAL HISTORY: No alcohol, tobacco, or drugs. FAMILY HISTORY: Father at 67 of a heart attack. Mother at 92 of pancreatic cancer. REVIEW OF SYSTEMS: A 12-point review of systems was done and was all negative unless stated in the history of present illness. PHYSICAL EXAMINATION: VITAL SIGNS: Temperature 97.9, pulse 52, respiratory rate 18, saturating 95% on room air, and blood pressure 133/59. GENERAL: Awake, alert, and oriented x3, in no distress. HEENT: Normocephalic and atraumatic. NECK: Supple. LUNGS: Clear. CARDIOVASCULAR: S1 and S2. No S3 or S4. No murmurs. ABDOMEN: Soft. Positive bowel sounds. EXTREMITIES: No edema. SKIN: Warm and dry. LABORATORY DATA: Laboratory work was reviewed. CBC with a white count of 6, hemoglobin of 15, hematocrit of 46, platelet count of 191. Chemistries are unremarkable except for creatinine of 1.4, but GFR was 48. Uric acid was at 8.7. Troponin is negative x2. BNP was 143. TSH was 9.2 with a free T3 of 2.6 and a free T4 of 0.88. Chest x-ray was reviewed. EKG was reviewed. Most recent echo was done last week on Friday. It showed EF of 40% to 45% with inferior akinesis and a moderate pericardial effusion. ASSESSMENT AND PLAN: Chest pain. Concern for angina. We will further risk stratify with a heart catheterization as he has reduced EF and regional wall motion abnormality, suggestive of coronary artery disease. We have spoken with him at length of the risks and benefits of the procedure. Risks including but not limited to stroke, SC, , bleeding, need for blood transfusion, limb loss, organ loss, need for emergent bypass surgery, the patient understands, verbalized understanding of this, and agrees to proceed. We also spoke about moderate sedation and he agrees. Further recommendations per results of coronary angiogram. Job ID: [id number] MTDD
[2018-11-02] MEDS ORDERED: Midazolam HCl 2 mg/2 ml Vial ONE (11:14)
[2018-11-02] MEDS ORDERED: Fentanyl 100 MCG/2 ML VIAL ONE (11:15)
[2018-11-02] MEDS ORDERED: DOPamine 400 MG/D5W 250 ML 250 ML ONE (11:39)
--- NOTE | 2018-11-02 11:46 | PRG ---
DATE OF SERVICE: 11/02/2018 SUBJECTIVE: Mr. Hernandez is resting comfortably in bed. He has no medical complaints of chest pain nor shortness of breath. OBJECTIVE: VITAL SIGNS: His blood pressure is 133/59, temperature 97.9, and O2 saturations 95% on room air. LUNGS: Clear. HEART: Reveals no murmur. LABORATORY DATA: His cardiac enzymes are negative x3. It is noted his TSH is slightly elevated at 9.2. Electrolytes reveal a mildly elevated creatinine at 1.4. IMPRESSION AND PLAN: History of dyspnea of unknown etiology. The patient has a previous history of pericardial effusion. He is being worked up to have an inguinal hernia surgery. At this point, the shortness of breath could be cardiac. However, there is no evidence of any acute cardiac status at this time. Further evaluation with Cardiology will be necessary. Job ID: [id number]
[2018-11-02] MEDS ORDERED: TICAGRELOR 90 MG TABLET ONE (11:52)
[2018-11-02] MEDS ORDERED: Morphine 2 MG/ML SYRINGE SLOW IVP PRN (11:54)
[2018-11-02] MEDS ORDERED: Sodium Chloride 0.9% 1,000 ML IV SCH (12:00)
[2018-11-02] MEDS: TICAGRELOR 90 MG TABLET PO SCH (19:58)
[2018-11-02] MEDS ORDERED: Atorvastatin Calcium 20 MG TAB PO SCH (21:00)
[2018-11-03 05:16] LABS: #Eosinphils 0.4 thou/uL (0.0-0.7); #Lymphocytes 1.2 thou/uL (1.20-3.40); #Monocytes 0.7 thou/uL (0.11-0.59); #Neutrophils 5.3 thou/uL (1.40-6.50); %Basophils 0.2 % (0.0-1.0); %Eosinophils 5.6 % (0.0-10.0); %Lymphocytes 15.2 % (21.0-51.0); %Monocytes 9.5 % (0.0-10.0); %Neutrophils 69.5 % (42.0-75.0); Hemoglobin 15.5 g/dL (14.0-18.0); Mean Corpuscular HGB CONC 34.4 g/dL (32.0-36.0); Mean Corpuscular Hemoglobin 30.7 pg (27.0-31.0); Mean Corpuscular Volume 89.2 fL (78.0-98.0); Platelet Count 172 thou/uL (130-400); RBC Distribution Width 12.1 % (11.5-14.5); Red Blood Cell (RBC) Count 5.06 mill/uL (4.70-6.10); White Blood Cell (WBC) Count 7.6 thou/uL (4.8-10.8)
[2018-11-03 05:27] LABS: ALT (SGPT) 13 U/L (8-55); AST (SGOT) 19 U/L (5-34); Albumin 3.6 g/dL (3.4-4.8); Alkaline Phosphatase 83 U/L (40-150); Anion Gap 11 mmol/L (10-20); BUN (Urea Nitrogen) 19 mg/dL (8.4-25.7); Bilirubin, Total 0.7 mg/dL (0.2-1.2); Calc. Creatinine Clearance 47 mL/min (70-130); Calcium 9.2 mg/dL (7.8-10.44); Carbon Dioxide 25 mmol/L (23-31); Chloride 105 mmol/L (98-107); Estimated GFR-MDRD 47; Glucose 96 mg/dL (83-110); Potassium 4.8 mmol/L (3.5-5.1); Protein, Total 6.6 g/dL (5.8-8.1); Sodium 136 mmol/L (136-145)
[2018-11-03] MEDS ORDERED: Aspirin Chewable 81 MG TAB PO SCH (09:00)
[2018-11-03] MEDS ORDERED: Lisinopril 2.5 MG TAB PO SCH (09:00)
[2018-11-03] MEDS: TICAGRELOR 90 MG TABLET PO SCH (09:16)
[2018-11-03 12:21] VITALS: BP 151/66; TEMP 97.5
--- NOTE | 2018-11-03 14:05 | PRG ---
DATE OF SERVICE: 11/03/2018 SUBJECTIVE: Mr. Hernandez underwent cardiac cath yesterday with stent placement. He is doing well. He reports no medical complaints or problems today. OBJECTIVE: VITAL SIGNS: His temperature is 97.2, blood pressure 150/69, and O2 saturations 97%. LUNGS: Clear. HEART: Reveals a regular rate and rhythm. No murmurs, gallops, or rubs. IMPRESSION: 1. Atherosclerotic coronary artery disease. 2. Right inguinal hernia. PLAN: The patient will probably be discharged home later today. We will consult Cardiology prior to discharge. Job ID: [id number]
--- NOTE | 2018-11-05 16:31 | EKG ---
Test Reason : POST STENT Blood Pressure : / mmHG Vent. Rate : 052 BPM Atrial Rate : 052 BPM P-R Int : 196 ms QRS Dur : 102 ms QT Int : 478 ms P-R-T Axes : 055 -17 041 degrees QTc Int : 444 ms Sinus bradycardia with occasional Premature ventricular complexes Inferior infarct (cited on or before 01-NOV-2018) Abnormal ECG Confirmed by NABILA QUINTERO ([id number]) on 11/05/2018 4:31:38 PM Referred By: SEAN Confirmed By:NABILA QUINTERO
--- NOTE | 2018-11-05 16:41 | EKG ---
Test Reason : Blood Pressure : / mmHG Vent. Rate : 063 BPM Atrial Rate : 063 BPM P-R Int : 188 ms QRS Dur : 106 ms QT Int : 454 ms P-R-T Axes : 038 -14 040 degrees QTc Int : 464 ms Sinus rhythm with occasional Premature ventricular complexes Inferior infarct (cited on or before 01-NOV-2018) Abnormal ECG Confirmed by NABILA QUINTERO ([id number]) on 11/05/2018 4:41:16 PM Referred By: SEAN Confirmed By:NABILA QUINTERO
== END 2018-11-03 16:02 | disposition home or self-care (01) | DRG 249 ==
LOC: ERS 11:46 → 2SW 13:39 → OBSVTOIN 16:35 → 2NO 21:55
PROVIDERS: ADMIT Family Medicine; ATTEND Family Medicine
PROC: 02703DZ Dilation of Coronary Artery, One Artery with Intraluminal Device, Percutaneous Approach (ICD-10-PCS; principal; 2018-11-02)
PROC: B2111ZZ Fluoroscopy of Multiple Coronary Arteries using Low Osmolar Contrast (ICD-10-PCS; 2018-11-02)
PROC: B2151ZZ Fluoroscopy of Left Heart using Low Osmolar Contrast (ICD-10-PCS; 2018-11-02)
PROC: 4A023N7 Measurement of Cardiac Sampling and Pressure, Left Heart, Percutaneous Approach (ICD-10-PCS; 2018-11-02)
DX: I25.10 Atherosclerotic heart disease of native coronary artery without angina pectoris (principal); I42.9 Cardiomyopathy, unspecified; N18.3 Chronic kidney disease, stage 3 (moderate); I50.9 Heart failure, unspecified; E03.9 Hypothyroidism, unspecified; K40.90 Unilateral inguinal hernia, without obstruction or gangrene, not specified as recurrent
CPT/HCPCS: 36415; 71045; 80053; 83880; 84439; 84443; 84481; 84484; 84550; 85025; 85347; 85652; 92928; 93005; 93010; 93306; 93454; 93798; 99152; C1769; C1876; C1887; J1265; J1644; J2001; J2250; J3010; Q9967

== ENCOUNTER 2018-12-15 06:01 | Day surgery (SDC) | payer OTHER ==
[2018-10-29 15:47] VITALS: BMI 27.2
[2018-12-15] MEDS ORDERED: Bupivacaine/Epinephrine 0.25% 30 ML VIAL ONE (06:38)
[2018-12-15] MEDS ORDERED: Fentanyl 100 MCG/2 ML VIAL ONE (06:39)
[2018-12-15 06:42] LABS: #Eosinphils 0.3 thou/uL (0.0-0.7); #Lymphocytes 1.2 thou/uL (1.20-3.40); #Monocytes 0.8 thou/uL (0.11-0.59); #Neutrophils 4.5 thou/uL (1.40-6.50); %Basophils 0.5 % (0.0-1.0); %Eosinophils 4.8 % (0.0-10.0); %Lymphocytes 17.2 % (21.0-51.0); %Monocytes 11.3 % (0.0-10.0); %Neutrophils 66.3 % (42.0-75.0); Hemoglobin 15.1 g/dL (14.0-18.0); Mean Corpuscular HGB CONC 35.1 g/dL (32.0-36.0); Mean Corpuscular Hemoglobin 31.6 pg (27.0-31.0); Mean Corpuscular Volume 89.9 fL (78.0-98.0); Platelet Count 159 thou/uL (130-400); RBC Distribution Width 12.3 % (11.5-14.5); Red Blood Cell (RBC) Count 4.77 mill/uL (4.70-6.10); White Blood Cell (WBC) Count 6.8 thou/uL (4.8-10.8)
[2018-12-15 07:05] LABS: ALT (SGPT) 16 U/L (8-55); AST (SGOT) 23 U/L (5-34); Albumin 4.1 g/dL (3.4-4.8); Alkaline Phosphatase 93 U/L (40-110); Anion Gap 13 mmol/L (10-20); BUN (Urea Nitrogen) 21 mg/dL (8.4-25.7); Bilirubin, Total 0.7 mg/dL (0.2-1.2); Calc. Creatinine Clearance 49 mL/min (70-130); Calcium 9.4 mg/dL (7.8-10.44); Carbon Dioxide 21 mmol/L (23-31); Chloride 107 mmol/L (98-107); Estimated GFR-MDRD 51; Globulin 3.3 g/dL (2.4-3.5); Glucose 92 mg/dL (83-110); Potassium 4.2 mmol/L (3.5-5.1); Protein, Total 7.4 g/dL (5.8-8.1); Sodium 137 mmol/L (136-145)
[2018-12-15] MEDS ORDERED: Propofol 500 MG/50 ML VIAL ONE (07:26)
[2018-12-15] MEDS ORDERED: Bupivacaine PF 0.5% 30 ML VIAL ONE (08:10)
[2018-12-15] MEDS ORDERED: HYDROcodone/Acetaminophen 5/325 mg Tablet ONE (10:18)
--- NOTE | 2018-12-15 15:03 | OP ---
DATE OF PROCEDURE: 12/15/2018 PREOPERATIVE DIAGNOSIS: Right inguinal hernia. POSTOPERATIVE DIAGNOSIS: Right inguinal hernia. PROCEDURE PERFORMED: Right inguinal hernia repair with mesh, PHS extended. ANESTHESIA: General. ESTIMATED BLOOD LOSS: Minimal. COMPLICATIONS: None. FINDINGS: Right inguinal hernia. DESCRIPTION OF PROCEDURE: The patient was taken to the operating room and laid supine on the operating table. After sedation was obtained, bilateral groin and abdomen were shaved, prepped, and draped in a sterile fashion. Oblique incision was made in the right lower quadrant above the pubic tubercle. Cautery was dissected down through Patience's to expose external oblique. External oblique fibers opened along the course of the external ring. Contents of the inguinal canal were dissected from backside of the external oblique. Cord structures were mobilized on the pubic tubercle using a Sadler drain. Dissection superiorly and medially on the cord showed to be an indirect hernia sac. A high ligation was performed using 2-0 silk. Preperitoneal space was bluntly dissected through the internal ring. The PHS extended mesh was brought into the sterile field, and the underlay was placed in the preperitoneal space. The overlay was laid in the inguinal floor. The overlay was sewn to the pubic tubercle to the shelving edge of inguinal ligament into the transverse arch. The mesh was cut to incorporate the internal ring. The two ends of cut mesh were reapproximated at the shelving edge of inguinal ligament to reform that structure. Extra mesh was tucked back into the external oblique proximally. The wound was irrigated. Local anesthetic was applied, tunneled cath for postop pain started above the incision, left on top of the mesh. External oblique was closed using Vicryl, Patience's closed using 3-0 Vicryl, skin closed using 4-0 Monocryl and Dermabond. The patient was sent to Recovery in stable condition. All instrument counts, needle counts, and lap counts were correct. Job ID: [id number]
== END 2018-12-15 10:43 | disposition home or self-care (01) ==
LOC: SDC 06:01
PROVIDERS: ATTEND Surgery
PROC: 0YU50JZ Supplement Right Inguinal Region with Synthetic Substitute, Open Approach (ICD-10-PCS; principal; 2018-12-15)
DX: K40.90 Unilateral inguinal hernia, without obstruction or gangrene, not specified as recurrent (principal); Z79.82 Long term (current) use of aspirin; Z79.899 Other long term (current) drug therapy
CPT/HCPCS: 80053; 85025; J0131; J0690; J2704; J3010; S0020

== ENCOUNTER 2019-05-09 18:16 | Emergency (ER) | payer OTHER ==
--- NOTE | 2019-05-09 18:57 | RAD ---
RADIOGRAPH CHEST 1 VIEW: DATE: 05/09/2019 HISTORY: 84-year-old male with dyspnea and cough FINDINGS: There are no airspace densities, pulmonary edema, pneumothorax, or cardiomegaly. The lateral costophr enic angles are sharp IMPRESSION: No acute cardiopulmonary findings.
[2019-05-09 19:04] LABS: Hemoglobin 15.1 g/dL (14.0-18.0); Mean Corpuscular HGB CONC 34.2 g/dL (32.0-36.0); Mean Corpuscular Hemoglobin 31.2 pg (27.0-31.0); Mean Corpuscular Volume 91.1 fL (78.0-98.0); Mean Platelet Volume 8.1 fL (7.4-10.4); Platelet Count 185 thou/uL (130-400); RBC Distribution Width 12.3 % (11.5-14.5); Red Blood Cell (RBC) Count 4.85 mill/uL (4.70-6.10); White Blood Cell (WBC) Count 6.1 thou/uL (4.8-10.8)
[2019-05-09 19:24] LABS: Band 4 % (5-11); Eosinophils 11 % (0-10); Lymphocytes 15 % (21-51); MDiff Complete? YES; Monocytes 11 % (0-10); Neutrophil 56 % (42-75); Platelet Morphology Comment Appears Adequate; RBC Morphology Normal; Reactive Lymphocytes 2 % (0-10)
[2019-05-09 19:25] LABS: ALT (SGPT) 24 U/L (8-55); AST (SGOT) 30 U/L (5-34); Albumin 3.8 g/dL (3.4-4.8); Alkaline Phosphatase 117 U/L (40-110); Anion Gap 12 mmol/L (10-20); BUN (Urea Nitrogen) 22 mg/dL (8.4-25.7); Bilirubin, Total 0.7 mg/dL (0.2-1.2); Calc. Creatinine Clearance 0 mL/min (70-130); Carbon Dioxide 25 mmol/L (23-31); Chloride 103 mmol/L (98-107); Estimated GFR-MDRD 46; Globulin 3.4 g/dL (2.4-3.5); Glucose 88 mg/dL (83-110); Potassium 4.2 mmol/L (3.5-5.1); Protein, Total 7.2 g/dL (5.8-8.1); Sodium 136 mmol/L (136-145)
[2019-05-09] MEDS ORDERED: predniSONE 20 MG TAB ONE (20:30)
[2019-05-09] MEDS ORDERED: Albuterol Sulfate 2.5 mg/3 ml Neb ONE (20:34)
== END 2019-05-09 21:44 | disposition home or self-care (01) ==
LOC: ERS 18:16
DX: R06.2 Wheezing (principal); R06.02 Shortness of breath; I50.9 Heart failure, unspecified; Z87.891 Personal history of nicotine dependence; Z79.899 Other long term (current) drug therapy; Z79.82 Long term (current) use of aspirin; Z79.02 Long term (current) use of antithrombotics/antiplatelets
CPT/HCPCS: 36415; 71045; 80053; 83880; 84484; 85025; 87804; 93005; 94640; J7512; J7611; J7620

== ENCOUNTER 2019-07-30 20:36 | Observation (INO) | payer OTHER ==
--- NOTE | 2019-07-30 21:03 | RAD ---
Chest AP view INDICATION: Left-sided chest pain with shortness of breath COMPARISON: May 09, 2019 FINDINGS: Lungs: COPD change is stable. No acute airspace opacity is demonstrated. Cardiac silhouette: Mild cardiomegaly is stable. Pulmonary vasculature: Normal Pleural spaces: No pleural effusion or pneumothorax is demonstrated. Upper abdomen: No abnormality seen. Osseous structures: No acute osseous abnormality. Additional findings: None. IMPRESSION: Stable COPD change and mild cardiomegaly.
[2019-07-30 21:19] LABS: #Eosinphils 0.2 thou/uL (0.0-0.7); #Lymphocytes 0.9 thou/uL (1.20-3.40); #Monocytes 0.6 thou/uL (0.11-0.59); #Neutrophils 4.2 thou/uL (1.40-6.50); %Basophils 0.2 % (0.0-1.0); %Eosinophils 4.1 % (0.0-10.0); %Lymphocytes 14.6 % (21.0-51.0); %Monocytes 10.6 % (0.0-10.0); %Neutrophils 70.5 % (42.0-75.0); Hemoglobin 14.7 g/dL (14.0-18.0); Mean Corpuscular HGB CONC 33.4 g/dL (32.0-36.0); Mean Corpuscular Hemoglobin 31.7 pg (27.0-31.0); Mean Corpuscular Volume 94.8 fL (78.0-98.0); Mean Platelet Volume 7.7 fL (7.4-10.4); Platelet Count 179 thou/uL (130-400); RBC Distribution Width 13.4 % (11.5-14.5); Red Blood Cell (RBC) Count 4.65 mill/uL (4.70-6.10); White Blood Cell (WBC) Count 5.9 thou/uL (4.8-10.8)
[2019-07-30 21:41] LABS: ALT (SGPT) 25 U/L (8-55); AST (SGOT) 27 U/L (5-34); Albumin 3.9 g/dL (3.4-4.8); Alkaline Phosphatase 103 U/L (40-110); Anion Gap 12 mmol/L (10-20); BUN (Urea Nitrogen) 21 mg/dL (8.4-25.7); Bilirubin, Total 0.7 mg/dL (0.2-1.2); CK (CPK) 137 U/L (30-200); Calc. Creatinine Clearance 0 mL/min (70-130); Calcium 9.2 mg/dL (7.8-10.44); Carbon Dioxide 28 mmol/L (23-31); Chloride 105 mmol/L (98-107); Estimated GFR-MDRD 52; Globulin 3.3 g/dL (2.4-3.5); Glucose 91 mg/dL (83-110); Lipase 23 U/L (8-78); Potassium 4.5 mmol/L (3.5-5.1); Protein, Total 7.2 g/dL (5.8-8.1); Sodium 140 mmol/L (136-145)
[2019-07-30] MEDS ORDERED: Aspirin Chewable 81 MG TAB ONE (22:54)
[2019-07-30] MEDS ORDERED: HYDROcodone/Acetaminophen 5/325 mg Tablet ONE (23:40)
[2019-07-30] MEDS ORDERED: Nitroglycerin 0.4 MG TAB (25 Tab Bottle) PO PRN (23:55)
[2019-07-31 01:07] VITALS: BMI 26.9
[2019-07-31 02:16] LABS: Troponin I 0.017 ng/mL (< 0.028)
[2019-07-31 05:16] LABS: Troponin I 0.027 ng/mL (< 0.028)
--- NOTE | 2019-07-31 06:19 | HP ---
CHIEF COMPLAINT: Chest pain. HISTORY OF PRESENT ILLNESS: Mr. Hernandez is an 84-year-old male with past medical history of coronary artery disease with cardiac stents, asthma, hypertension, hyperlipidemia, presented to the emergency room for chest pain for the last 3 days. The pain is described in the lower chest, constant, no aggravating or relieving factors. Denies shortness of breath, nausea, vomiting, or abdominal pain. Denies fever or chills. Workup in the emergency room including initial troponin negative. EKG showed sinus bradycardia. No acute ischemic changes. Given the patient's presentation and risk factors, the patient is being admitted to the hospital for further management and to rule out acute coronary syndrome. PAST MEDICAL HISTORY: 1. Coronary artery disease. 2. Hypertension. 3. Hyperlipidemia. 4. Asthma? PAST SURGICAL HISTORY: 1. Two cardiac stents. 2. Inguinal hernia surgery. SOCIAL HISTORY: The patient is a former tobacco user, smokes cigars. Denies drug use. FAMILY HISTORY: Reviewed and noncontributory. ALLERGIES: NO KNOWN ALLERGIES. HOME MEDICATIONS: Please see home medication reconciliation form for updated medications. REVIEW OF SYSTEMS: Review of 14 systems negative except what is mentioned in history of present illness. PHYSICAL EXAMINATION: GENERAL: The patient is awake, alert, in mild distress. VITAL SIGNS: Blood pressure 160/63, pulse is 53, respiratory rate is 14, temperature 97.9, oxygen saturation is 98% on room air. HEAD AND NECK: Normocephalic, atraumatic. NECK: Supple. No JVD. CHEST: Fair bilateral air entry. HEART: S1, S2. Regular, bradycardic. ABDOMEN: Soft, nontender. Bowel sounds present. NEUROLOGIC: Awake, alert, oriented x3. No focal deficits. PSYCHIATRIC: Unable to assess. EXTREMITIES: No clubbing or cyanosis. LABORATORY DATA: Troponin 0.021. Chest x-ray shows COPD changes, mild cardiomegaly. ASSESSMENT: 1. Acute chest pain, rule out acute coronary syndrome. 2. Coronary artery disease with history of stents. 3. Hypertension. 4. Hyperlipidemia. 5. Asthma/chronic obstructive pulmonary disease. PLAN: 1. Admit. 2. Tele monitor. 3. Aspirin. 4. Serial troponins. 5. Consult the patient's building construction estimator in a.m. for evaluation and further recommendations. 6. Reconcile home medications. 7. DVT prophylaxis as appropriate. 8. Expected length of stay, 1 midnight if the patient is stable and further workup negative. Job ID: [id number]
[2019-07-31] MEDS ORDERED: Labetalol HCl 100 MG/20 ML VIAL SLOW IVP PRN (07:34)
[2019-07-31] MEDS ORDERED: diphenhydrAMINE 25 MG CAP PO PRN (07:34)
[2019-07-31] MEDS ORDERED: Benzonatate 100 MG CAP PO PRN (07:34)
[2019-07-31] MEDS ORDERED: hydrALAZINE 20 MG/ML VIAL SLOW IVP PRN (07:35)
[2019-07-31] MEDS: HYDROcodone/Acetaminophen 5/325 mg Tablet PO PRN ×2 (07:44→18:15)
[2019-07-31] MEDS: Enoxaparin Sodium 40 MG/0.4 ML SYRINGE SC SCH (07:46)
[2019-07-31] MEDS: Aspirin 325 mg Enteric Coated Tablet PO SCH (07:46)
[2019-07-31] MEDS: Aspirin Chewable 81 MG TAB PO SCH (07:49)
[2019-07-31] MEDS: Atorvastatin Calcium 20 MG TAB PO SCH (07:53)
[2019-07-31] MEDS ORDERED: Carvedilol 3.125 MG TAB PO SCH ×2 (09:00→21:00)
[2019-07-31] MEDS ORDERED: Lisinopril 2.5 MG TAB PO SCH ×2 (09:00→11:15)
--- NOTE | 2019-07-31 13:23 | CON ---
DATE OF CONSULTATION: PRIMARY CARE DOCTOR: Flaco Spence MD. PRIMARY MAT MAN: Romeo Fulton MD. REASON FOR CARDIOLOGY CONSULTATION: Chest pain. HISTORY OF PRESENT ILLNESS: Mr. Hernandez is an 84-year-old male with significant history of coronary artery disease with stents placement in RCA in 11/2018, also bradycardia, gout, and pericardial effusion. This moment, the patient's mental status is questionable. The patient has intermittent confusion. The patient stated the patient fall this Friday, 5 days ago. Somehow, he started having pain in the left upper quadrant abdomen right below the ribs. The pain is getting worse all day yesterday. The patient denied any cardiac complaints, such as dizziness, lightheadedness, numbness in the left upper extremity, or any other cardiac complaints. However, due to the patient's family concern about his symptoms, the patient was brought to the emergency department for further evaluation and treatment. The patient's troponin has been negative and the patient's electrolytes and hemoglobin level have been stable. The patient's 12-lead EKG has shown sinus bradycardia. At this moment after the patient received Og[place] this morning, the patient's symptom getting improving and he say the pain has almost gone today this moment. The patient underwent cardiac catheterization in 11/2018 at [facility]. We used a bare-metal stent placement in his mid RCA moderate stenosis. The patient had a 60% in the mid LAD and 60% in the OM. The patient had an echocardiogram done in 11/2018 with EF 40% to 45%, grade 1 diastolic dysfunction, inferior hypokinesis, moderate LAE, moderate mitral valve regurgitation, mild aortic valve regurgitation, mild tricuspid regurgitation, mild pulmonary regurgitation. The patient had a carotid Doppler study done in 01/2013 with no significant stenosis in the ICA. MEDICAL HISTORY: 1. Coronary artery disease status post bare-metal stent placement in 11/2018. 2. Hypertension. 3. Hyperlipidemia. 4. Possible asthma. 5. Gout. 6. Pericardial effusion. 7. Bronchitis. SURGICAL HISTORY: 1. Colonoscopy. 2. Status post hernia repair by Dr. Benoit. 3. Stent placement. FAMILY HISTORY: Noncontributory. The patient's father at the age of 67 due to myocardial infarction. The patient's mother at the age of 92 due to pancreatic cancer. SOCIAL HISTORY: The patient denies any EtOH, tobacco, or illicit drug abuse. He has been active at the [employer]. According to the patient, he is tripping and falling quite a lot lately, but the patient denied any dizziness or near syncopal episodes. ALLERGIES: HE HAS NO KNOWN DRUG ALLERGIES. MEDICATIONS: 1. Lisinopril 5 mg once a day. 2. Plavix 75 mg once a day, however, which is being on hold due to nose bleeding. 3. Aspirin 81 mg once a day. 4. Atorvastatin 20 mg once a day. 5. Symbicort two puffs twice a day. 6. Carvedilol 3.125 mg twice a day. REVIEW OF SYSTEMS: Twelve-point review of systems negative unless otherwise mentioned in HPI. PHYSICAL EXAMINATION: VITAL SIGNS: Blood pressure 155/65, temperature 97.8, pulse is 49 to 58, respiratory rate 20, and O2 saturation 99% on room air. GENERAL: The patient is alert and oriented x4, but intermittently the patient is forgetful. HEAD: Normocephalic and atraumatic. EYES: Extraocular muscle movement intact. ENT: Mouth, oral, and nasal mucosa moist without lesion. NECK: Supple. Normal range of motion. No JVD. No bruit or thrill noted at the carotid arteries area. RESPIRATORY: Clear to auscultate bilaterally, but very diminished at the bases. No wheezing, rales, or rhonchi noted. CARDIOVASCULAR: Regular rate and rhythm. Normal S1 and S2. There is no S3 or S4. No significant murmur, hives, or thrill noted. 2+ pulses in bilateral upper and lower extremities. No edema in the lower extremities. ABDOMEN: Soft and nontender. No mass palpated. Bowel sounds are present. MUSCULOSKELETAL: The patient is able to move all extremities. The patient denied claudication. NEUROLOGIC: The patient is alert and oriented x4 with intermittent forgetfulness. Nonfocal. PSYCHIATRIC: The patient's mood is appropriate. LABORATORY DATA: WBC 5.9, hemoglobin 14.7, hematocrit 44.1, and platelets 179. Sodium 140, potassium 4.5, BUN 21, creatinine 1.30, glucose 91, AST 27, and ALT 25. Creatine kinase 137. Troponin 0.021, 0.017, and 0.027. The chest x-ray shows stable COPD and mild cardiomegaly. ASSESSMENT AND PLAN: 1. Chest pain. The patient complains of sharp pain from his left upper abdomen area which radiated to his left lateral side, which seems to be from musculoskeletal etiology, He started the symptoms after he fell on Friday, and the symptoms have became worse gradually. The patient's symptom improved now with pain medication. He also underwent cardiac catheterization with BMS stent placement in 11/2018. Stress test will be ordered for his symptoms. If his stress test shows some ischemia, he may undergo another cardiac catheterization by Dr Fulton. 2. Coronary artery disease status post stent placement in 11/2018 with a bare metal in right coronary artery. The patient stopped taking the Plavix a couple of weeks ago due to severe nasal bleeding. Since then, he continued to take aspirin, Lipitor 20 mg once a day, carvedilol 3.125 mg twice a day, and lisinopril 5 mg once a day at home. 3. Hypertension. The patient's blood pressure is stable at this moment; however , his heart rate has been bradycardia. Carvedilol will be hold due to the bradycardia and increase the dosage of lisinopril. 4. Chronic obstructive pulmonary disease. The patient is on Symbicort at home. His respiratory status is stable at this moment with room air. 5. Pericardial effusion. The patient is going to have another echo at Dr. Fulton's office in 12/2019. The patient's condition is stable at this moment. Thank you very much for Cardiology Service consult request to participate in the care of this patient. We will follow along the patient's care team and make further recommendations as appropriate. Job ID: [id number] MTDD
--- NOTE | 2019-07-31 15:46 | PDOC.EVN ---
Event Note - Event Note Event Note: Seen and examined. Discuss case with nursing staff and cardiology nurse practitioner. Time was given for questions, all answered in detail. Will continue to follow closely. Chest pain reproducible to palpation, hx of remote fall. Though significant recent cardiac hx, also patient has stopped antiplatelet therapy prematurely for nose bleeding. May need stress test to rule out cardiac etiology of chest pain.
[2019-07-31] MEDS ORDERED: Polyethylene Glycol 3350 17 GM Packet PO PRN (20:17)
[2019-07-31] MEDS: Melatonin 3 MG TAB PO PRN (20:53)
[2019-07-31] MEDS: Docusate 100 MG CAP PO PRN (20:53)
[2019-08-01] MEDS: HYDROcodone/Acetaminophen 5/325 mg Tablet PO PRN ×2 (00:01→05:28)
--- NOTE | 2019-08-01 05:33 | CON ---
DATE OF CONSULTATION: 07/31/2019 ADDENDUM: INDICATION FOR CONSULTATION: This 84-year-old patient with history of known coronary artery disease, who underwent angioplasty and stent placement to the right coronary artery in November 2018. Since that time, he has been doing very well. 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 He noticed earlier this week that he started having some sharp left-sided chest pain all along the left lateral thorax from the midaxillary line, all the way down almost to his waist area. He said the pains would come and go. They would be so sudden and sharp that he would start shaking due to the pain and they were on and off for couple of days and last night they became much worse and then he presented to the emergency room and he was admitted to the hospital. His EKG does not show any acute ST-segment changes and cardiac enzymes remain negative. His pain has subsided. However, today when I was evaluating him, he did have another sharp sudden pain. He describes them as almost like being lightning bolts, but these not do not appear to be cardiac in nature. However, given his history of coronary artery disease and stent placement with history of other coronary artery disease previously, I would suggest that while he is here he undergo stress testing as a more definitive tool to rule out evidence of underlying coronary artery disease in light of the fact that he did have a 60% stenosis in the mid left anterior descending artery, this was back in November 2018. Otherwise, he has remained stable. The first part of the stress test was performed today and he will have the 2nd part tomorrow. If this is negative, he can be discharged tomorrow. If he has any abnormalities, he may need to undergo repeat cardiac catheterization on Friday. PAST MEDICAL HISTORY: Please refer to the notes dictated by my nurse practitioner. SOCIAL HISTORY: Please refer to the notes dictated by my nurse practitioner. FAMILY HISTORY: Please refer to the notes dictated by my nurse practitioner. REVIEW OF SYSTEMS: Please refer to the notes dictated by my nurse practitioner. MEDICATIONS: Please refer to the notes dictated by my nurse practitioner. ALLERGIES: PLEASE REFER TO THE NOTES DICTATED BY MY NURSE PRACTITIONER. PHYSICAL EXAMINATION: Please refer to the notes dictated by my nurse practitioner. PLAN: I have seen the patient, I have read and we have assessed this patient. I have gone over the assessment and plan by her and would agree with this plan except we will continue with the stress test. Job ID: [id number]
[2019-08-01] MEDS ORDERED: Ondansetron PF 4 MG/2 ML Vial IVP SCH (08:30)
[2019-08-01] MEDS: Enoxaparin Sodium 40 MG/0.4 ML SYRINGE SC SCH (09:41)
[2019-08-01] MEDS: Aspirin Chewable 81 MG TAB PO SCH (09:41)
[2019-08-01] MEDS: Atorvastatin Calcium 20 MG TAB PO SCH (09:41)
[2019-08-01] MEDS: Aspirin 325 mg Enteric Coated Tablet PO SCH (09:41)
[2019-08-01] MEDS: Lisinopril 5 MG TAB PO SCH (09:42)
--- NOTE | 2019-08-01 14:14 | PDOC.CPN ---
- Subjective Date: 08/01/19 Time: 14:19 Interval history: the pt seen and examined. No overnight events. No cardiac complaints. - Objective Allergies/Adverse Reactions: Allergies Allergy/AdvReac Type Severity Reaction Status Date / Time No Known Drug Allergies Allergy Verified 12/14/18 15:27 Visit Medications: Current Medications Hydrocodone Bitart/Acetaminophen ([place] 5/325) 1 tab PO Q6H PRN PRN Reason: Pain Last Admin: 08/01/19 05:28 Dose: 1 tab Albuterol/Ipratropium (Duoneb) 3 ml NEB [id number] PRN PRN Reason: SOB &/or Wheezing Aspirin (Ecotrin) 325 mg PO DAILY [facility] Last Admin: 08/01/19 09:41 Dose: Not Given Aspirin (Aspirin Chewable) 81 mg PO DAILY [facility] Last Admin: 08/01/19 09:41 Dose: 81 mg Atorvastatin Calcium (Lipitor) 20 mg PO DAILY [facility] Last Admin: 08/01/19 09:41 Dose: 20 mg Benzonatate (Tessalon) 100 mg PO Q4H PRN PRN Reason: Cough Diphenhydramine HCl (Benadryl) 25 mg PO Q6H PRN PRN Reason: Itching & Insomnia Docusate Sodium (Colace) 100 mg PO BIDPRN PRN PRN Reason: Constipation Last Admin: 07/31/19 20:53 Dose: 100 mg Enoxaparin Sodium (Lovenox) 40 mg SC 0900 [facility] Last Admin: 08/01/19 09:41 Dose: 40 mg Hydralazine HCl (Apresoline) 10 mg SLOW IVP Q4H PRN PRN Reason: Hypertension Lisinopril (Zestril) 5 mg PO DAILY [facility] Last Admin: 08/01/19 09:42 Dose: 5 mg Melatonin (Melatonin) 3 mg PO HS PRN PRN Reason: Insomnia Last Admin: 07/31/19 20:53 Dose: 3 mg Nitroglycerin (Nitrostat) 0.4 mg PO Q5MIN PRN PRN Reason: Chest Pain Last Admin: 07/31/19 06:34 Dose: 1 tablet Polyethylene Glycol (Miralax) 17 gm PO DAILYPRN PRN PRN Reason: Constipation Vital Signs & Weight: Vital Signs Temp Pulse Resp BP Pulse Ox 08/01/19 11:45 97.5 F L 53 L 18 161/68 H 97 08/01/19 09:30 97.5 F L 50 L 18 161/77 H 98 08/01/19 04:00 97.3 F L 58 L 18 147/67 H 94 L 08/01/19 03:47 97 Weight 187 lb 13.341 oz - Physical Exam General: alert & oriented x3 HEENT: mucus membranes moist Neck: supple neck Cardiac: regular rate and rhythm, S1/S2 Lungs: clear to auscultation Neuro: cranial nerve 2-12 intact Extremities: no edema - Labs Result Diagrams: 07/30/19 21:05 07/30/19 21:05 Troponin/CKMB Troponin I 0.027 ng/mL (< 0.028) 07/31/19 04:36 - Telemetry Sinus rhythms and dysrhythmias: sinus rhythm - Assessment/Plan Assessment/Plan: 1. Chest pain in adult - waiting for stress test result 2. CAD with s/p BM stent placement in RCA in 11/2018 - Coreg is on hold due to bradycardia; on Lisinoprol and ASA. Plavix was stopped due to Epistaxis 3. Bradycardia - coreg is on hold 4. HTN - will start Norvasc 5mg qd 5. HLD - on Stat 6. possible Asthma/COPD MAR reviewed * Dr Fulton's pt
[2019-08-01] MEDS ORDERED: Amlodipine 5 MG TAB PO SCH (14:15)
--- NOTE | 2019-08-01 15:11 | PDOC.HOSPP ---
- Subjective Subjective: Seen and examined this a.m. Patient with left-sided chest discomfort. Patient is feeling nauseous and doesn't know if he'll be able to complete nuclear medicine stress test. I have added an additional dose of IV Zofran. Patient states that he feels backed up and constipated, requesting laxative. Family at bedside, all questions answered in detail. Patient's primary modern greek studies professor Dr. Fulton will be back tomorrow. - Objective Vital Signs & Weight: Vital Signs (12 hours) Temp Pulse Resp BP Pulse Ox 08/01/19 11:45 97.5 F L 53 L 18 161/68 H 97 08/01/19 09:30 97.5 F L 50 L 18 161/77 H 98 08/01/19 04:00 97.3 F L 58 L 18 147/67 H 94 L 08/01/19 03:47 97 Weight Weight 187 lb 13.341 oz I&O: 07/31/19 08/01/19 08/02/19 06:59 06:59 06:59 Intake Total 0 1450 Output Total 400 700 Balance -400 750 Result Diagrams: 07/30/19 21:05 07/30/19 21:05 Radiology Reviewed by me: Yes Hospitalist ROS - Review of Systems All other systems reviewed; all pertinent +/- noted in HPI/Subj - Medication Medications: Active Medications Generic Name Dose Route Start Last Admin Trade Name Freq PRN Reason Stop Dose Admin Hydrocodone Bitart/Acetaminophen 1 tab 07/31/19 06:54 08/01/19 05:28 [place] 5/325 PO 1 tab Q6H PRN Administration Pain Amlodipine Besylate 5 mg 08/01/19 14:15 08/01/19 14:46 Norvasc PO 08/01/19 16:15 5 mg NOW TOR Administration Aspirin 81 mg 07/31/19 09:00 08/01/19 09:41 Aspirin Chewable PO 81 mg DAILY TOR Administration Atorvastatin Calcium 20 mg 07/31/19 09:00 08/01/19 09:41 Lipitor PO 20 mg DAILY TOR Administration Docusate Sodium 100 mg 07/31/19 20:17 07/31/19 20:53 Colace PO 100 mg BIDPRN PRN Administration Constipation Enoxaparin Sodium 40 mg 07/31/19 09:00 05/31/20 09:41 Lovenox SC 40 mg 0900 TOR Administration Lisinopril 5 mg 08/01/19 09:00 08/01/19 09:42 Zestril PO 5 mg DAILY TOR Administration Melatonin 3 mg 07/31/19 07:34 07/31/19 20:53 Melatonin PO 3 mg HS PRN Administration Insomnia Nitroglycerin 0.4 mg 07/30/19 23:55 07/31/19 06:34 Nitrostat PO 1 tablet Q5MIN PRN Administration Chest Pain - Exam General Appearance: NAD, awake alert Eye: PERRL ENT: normocephalic atraumatic, moist mucosa Neck: supple, symmetric, no JVD Heart: no gallops, no rubs, murmur present Respiratory: CTAB, no wheezes, no rales, no ronchi, normal chest expansion Gastrointestinal: soft, non-tender, non-distended, no guarding, no rigidity Extremities: no edema Skin: no lesions, no rashes Neurological: cranial nerve grossly intact, no focal deficits Musculoskeletal: generalized weakness Psychiatric: normal affect, normal behavior, A&O x 3 Hosp A/P (1) Chest pain Code(s): R07.9 - CHEST PAIN, UNSPECIFIED Status: Acute (2) CAD (coronary artery disease) Code(s): I25.10 - ATHSCL HEART DISEASE OF [place] CORONARY ARTERY W/O ANG PCTRS Status: Acute (3) Transaminitis Code(s): R74.0 - NONSPEC ELEV OF LEVELS OF TRANSAMNS & LACTIC ACID DEHYDRGNSE Status: Acute (4) Gout Code(s): M10.9 - GOUT, UNSPECIFIED Status: Suspected Qualifiers: Gout site: foot Gout etiology: idiopathic Chronicity: acute Laterality : right Qualified Code(s): M10.071 - Idiopathic gout, right ankle and foot (5) HTN (hypertension) Code(s): I10 - ESSENTIAL (PRIMARY) HYPERTENSION Status: Suspected - Plan Plan: medical unit with telemetry cardiology consultation, recommendations appreciated nuclear medicine stress test has been ordered, though the patient was severe nausea and chest pain does not know if he can completed morphing, oxygen, nitrates, aspirin Hx of recent CAD with stent patient has self stopped Plavix secondary to nose bleeding continue other home medications as able blood pressure control blood sugar control PRN medications for nausea and constipation G.I. prophylaxis DVT prophylaxis
[2019-08-01] MEDS: Docusate 100 MG CAP PO PRN (20:36)
[2019-08-01] MEDS: Melatonin 3 MG TAB PO PRN (20:37)
[2019-08-02] MEDS ORDERED: Amlodipine 5 MG TAB PO SCH (09:00)
[2019-08-02] MEDS: HYDROcodone/Acetaminophen 5/325 mg Tablet PO PRN (09:05)
[2019-08-02] MEDS: Atorvastatin Calcium 20 MG TAB PO SCH (09:05)
[2019-08-02] MEDS: Aspirin Chewable 81 MG TAB PO SCH (09:05)
[2019-08-02] MEDS: Lisinopril 5 MG TAB PO SCH (09:05)
[2019-08-02] MEDS: Enoxaparin Sodium 40 MG/0.4 ML SYRINGE SC SCH (09:07)
[2019-08-02 09:09] VITALS: BP 126/73
[2019-08-02] MEDS: Docusate 100 MG CAP PO PRN (09:11)
[2019-08-02] MEDS ORDERED: Regadenoson 0.4 MG/5 ML SYRINGE ONE (09:30)
[2019-08-02 11:12] VITALS: TEMP 97.7
--- NOTE | 2019-08-02 11:31 | PDOC.CPN ---
- Subjective Date: 08/02/19 Time: 11:28 Interval history: He had his left sided chest pain during stress test, infusion of Lexiscan. He currently is pain free. test result pending till. - Review of Systems General: denies: fever/chills, weight/appetite/sleep changes, night sweats, fatigue Respiratory: denies: cough, congestion, shortness of breath, exercise intolerance Cardiovascular: denies: chest pain, palpitation, edema, paroxysmal nocturnal dyspnea, orthopnea Gastrointestinal: denies: nausea, vomiting, diarrhea, constipation, abd pain, GI bleeding Musculoskeletal: denies: pain, tenderness, stiffness, swelling, arthritis/ arthralgias Neurological: denies: numbness, syncope, seizure, weakness - Objective Allergies/Adverse Reactions: Allergies Allergy/AdvReac Type Severity Reaction Status Date / Time No Known Drug Allergies Allergy Verified 12/14/18 15:27 Visit Medications: Current Medications Hydrocodone Bitart/Acetaminophen ([place] 5/325) 1 tab PO Q6H PRN PRN Reason: Pain Last Admin: 08/02/19 09:05 Dose: 1 tab Albuterol/Ipratropium (Duoneb) 3 ml NEB [id number] PRN PRN Reason: SOB &/or Wheezing Amlodipine Besylate (Norvasc) 5 mg PO DAILY [facility] Last Admin: 08/02/19 09:04 Dose: 5 mg Aspirin (Aspirin Chewable) 81 mg PO DAILY [facility] Last Admin: 08/02/19 09:05 Dose: 81 mg Atorvastatin Calcium (Lipitor) 20 mg PO DAILY [facility] Last Admin: 08/02/19 09:05 Dose: 20 mg Benzonatate (Tessalon) 100 mg PO Q4H PRN PRN Reason: Cough Diphenhydramine HCl (Benadryl) 25 mg PO Q6H PRN PRN Reason: Itching & Insomnia Docusate Sodium (Colace) 100 mg PO BIDPRN PRN PRN Reason: Constipation Last Admin: 08/02/19 09:11 Dose: 100 mg Enoxaparin Sodium (Lovenox) 40 mg SC 0900 [facility] Last Admin: 08/02/19 09:07 Dose: 40 mg Hydralazine HCl (Apresoline) 10 mg SLOW IVP Q4H PRN PRN Reason: Hypertension Lisinopril (Zestril) 5 mg PO DAILY [facility] Last Admin: 08/02/19 09:05 Dose: 5 mg Melatonin (Melatonin) 3 mg PO HS PRN PRN Reason: Insomnia Last Admin: 08/01/19 20:37 Dose: 3 mg Nitroglycerin (Nitrostat) 0.4 mg PO Q5MIN PRN PRN Reason: Chest Pain Last Admin: 07/31/19 06:34 Dose: 1 tablet Polyethylene Glycol (Miralax) 17 gm PO DAILYPRN PRN PRN Reason: Constipation Last Admin: 08/01/19 20:37 Dose: 17 gm Vital Signs & Weight: Vital Signs Temp Pulse Resp BP BP Pulse Ox 08/02/19 09:05 60 126/73 08/02/19 09:04 60 126/73 08/02/19 09:02 97.7 F 60 16 126/73 99 08/02/19 04:00 98.4 F 67 18 147/68 H 96 Weight 185 lb 13.595 oz - Physical Exam General: alert & oriented x3 HEENT: mucus membranes moist Neck: supple neck Cardiac: regular rate and rhythm Lungs: clear to auscultation Neuro: grossly intact Abdomen: active bowel sounds Extremities: no edema Skin: clear - Labs Result Diagrams: 07/30/19 21:05 07/30/19 21:05 Troponin/CKMB Troponin I 0.027 ng/mL (< 0.028) 07/31/19 04:36 - Telemetry Sinus rhythms and dysrhythmias: sinus rhythm - Assessment/Plan Assessment/Plan: 1. Chets pian, atypical 2. CAD, s/p BMS to RCA in , no ACS PLAN: - Await results of stress if positive will plan on [facility] tomorrow morning. If negative may discharge home with follow up in 2-4 weeks.
--- NOTE | 2019-08-02 12:49 | NM ---
NUCLEAR MEDICINE CARDIAC MYOCARDIAL PERFUSION SPECT EJECTION FRACTION STUDY WALL MOTION CINE: DATE: 08/02/2019 HISTORY: 84-year-old male with coronary artery disease, hypertension, dyslipidemia, presents with acute chest pain. TECHNIQUE: Number of days: 2 Rest study: Technetium 99m-sestamibi (Cardiolite) dose: 30.3 mCi Pharmacologic stress: Lexiscan dose: 0.4 mg Stress study: Technetium 99m-sestamibi (Cardiolite) dose: 30.0 mCi FINDINGS: CARDIAC (MYOCARDIAL PERFUSION) SPECT There are no reversible myocardial perfusion defects. EJECTION FRACTION STUDY Left ventricular EF = 66 % WALL MOTION CINE Normal IMPRESSION: No evidence of reversible ischemia.
--- NOTE | 2019-08-03 17:26 | DIS ---
DATE OF ADMISSION: 07/30/2019 DATE OF DISCHARGE: 08/02/2019 DISCHARGE DISPOSITION: Home. PRIMARY DISCHARGE DIAGNOSIS: Chest pain, which is noncardiac. SECONDARY DISCHARGE DIAGNOSES: History of coronary artery disease, hypertension, dyslipidemia. PROCEDURES DONE DURING HOSPITALIZATION: Nuclear stress test done on 07/31/2019, which was a 2-day stress test showed no evidence of reversible ischemia, ejection fraction 66%, and wall motion was normal. Chest x-ray done showed COPD changes and mild cardiomegaly. H and H 14 and 44, platelet count 179. Troponin x3 negative. BUN 21, creatinine 1.3. DISCHARGE MEDICATIONS: 1. Aspirin 81 mg p.o. daily. 2. Lipitor 20 mg p.o. daily. 3. Carvedilol 3.125 mg twice daily. 4. Lisinopril 2.5 mg daily. ALLERGIES: NO KNOWN DRUG ALLERGIES. DISCHARGE PLAN: The patient is to follow up with Dr. Flaco Spence in [address] Fulton, his neon sign maker, in 2 to 3 weeks. BRIEF COURSE DURING HOSPITALIZATION: The patient initially came to ER on the 30 of July with complaints of chest pain, which was mostly in the left lower rib cage and the torso area. In view of this history and cardiac risk factors including prior stent, the patient was placed under observation on telemetry to rule out ACS. Three sets of troponin were negative. He has had a nuclear stress test, which was a 2-day stress test, which has come back negative for any reversible ischemia. He was evaluated by Dr. Fulton as well, his neon sign maker. He has remained hemodynamically stable and chest pain-free prior to discharge. Please note I have seen and examined the patient on the day of discharge. Job ID: [id number]
== END 2019-08-02 15:55 | disposition home or self-care (01) ==
LOC: ERS 20:36 → 2NO 23:59
PROVIDERS: ADMIT Internal Medicine; ATTEND Internal Medicine
DX: R07.89 Other chest pain (principal); I25.10 Atherosclerotic heart disease of native coronary artery without angina pectoris; I10 Essential (primary) hypertension; E78.5 Hyperlipidemia, unspecified; J44.9 Chronic obstructive pulmonary disease, unspecified; I31.3 Pericardial effusion (noninflammatory); Z79.82 Long term (current) use of aspirin; Z79.899 Other long term (current) drug therapy; Z87.891 Personal history of nicotine dependence; Z95.5 Presence of coronary angioplasty implant and graft
CPT/HCPCS: 36415; 71045; 78452; 80053; 82550; 83690; 84484; 85025; 93005; 93017; 94760; 96372; 96374; A9500; G0378; J1650; J2405; J2785

== ENCOUNTER 2019-08-04 09:27 | Emergency (ER) | payer MEDICARE, OTHER ==
[2019-08-04 10:57] LABS: #Eosinphils 0.2 thou/uL (0.0-0.7); #Monocytes 0.6 thou/uL (0.11-0.59); #Neutrophils 5.1 thou/uL (1.40-6.50); %Basophils 0.3 % (0.0-1.0); %Eosinophils 2.6 % (0.0-10.0); %Lymphocytes 14.8 % (21.0-51.0); %Neutrophils 73.3 % (42.0-75.0); Hemoglobin 14.7 g/dL (14.0-18.0); Mean Corpuscular HGB CONC 33.3 g/dL (32.0-36.0); Mean Platelet Volume 7.6 fL (7.4-10.4); Platelet Count 159 thou/uL (130-400); RBC Distribution Width 13.3 % (11.5-14.5); Red Blood Cell (RBC) Count 4.73 mill/uL (4.70-6.10)
[2019-08-04] MEDS ORDERED: Fleet Enema 133 ML BOT FS SCH (11:00)
[2019-08-04 11:09] LABS: ALT (SGPT) 35 U/L (8-55); AST (SGOT) 36 U/L (5-34); Albumin 3.8 g/dL (3.4-4.8); Alkaline Phosphatase 103 U/L (40-110); Anion Gap 13 mmol/L (10-20); BUN (Urea Nitrogen) 20 mg/dL (8.4-25.7); Bilirubin, Total 0.9 mg/dL (0.2-1.2); Calc. Creatinine Clearance 0 mL/min (70-130); Calcium 9.3 mg/dL (7.8-10.44); Carbon Dioxide 27 mmol/L (23-31); Chloride 103 mmol/L (98-107); Estimated GFR-MDRD 57; Globulin 3.4 g/dL (2.4-3.5); Glucose 96 mg/dL (83-110); Lipase 15 U/L (8-78); Potassium 4.5 mmol/L (3.5-5.1); Protein, Total 7.2 g/dL (5.8-8.1); Sodium 138 mmol/L (136-145)
[2019-08-04] MEDS ORDERED: Ketorolac Tromethamine 30 MG/ML VIAL ONE (12:02)
== END 2019-08-04 12:50 | disposition home or self-care (01) ==
LOC: ERS 09:27
DX: K59.00 Constipation, unspecified (principal); I11.0 Hypertensive heart disease with heart failure; I50.9 Heart failure, unspecified; Z79.899 Other long term (current) drug therapy; Z79.891 Long term (current) use of opiate analgesic
CPT/HCPCS: 80053; 83690; 85025; 96374; J1885

== ENCOUNTER 2019-08-06 08:22 | Emergency (ER) | payer OTHER, MEDICARE ==
[2019-08-06 08:56] LABS: #Eosinphils 0.2 thou/uL (0.0-0.7); #Lymphocytes 0.8 thou/uL (1.20-3.40); #Monocytes 0.6 thou/uL (0.11-0.59); #Neutrophils 3.7 thou/uL (1.40-6.50); %Basophils 0.7 % (0.0-1.0); %Eosinophils 3.5 % (0.0-10.0); %Monocytes 10.3 % (0.0-10.0); %Neutrophils 70.5 % (42.0-75.0); Hemoglobin 14.2 g/dL (14.0-18.0); Mean Corpuscular HGB CONC 33.3 g/dL (32.0-36.0); Mean Corpuscular Hemoglobin 30.8 pg (27.0-31.0); Mean Corpuscular Volume 92.5 fL (78.0-98.0); Mean Platelet Volume 7.5 fL (7.4-10.4); Platelet Count 176 thou/uL (130-400); RBC Distribution Width 13.1 % (11.5-14.5); White Blood Cell (WBC) Count 5.3 thou/uL (4.8-10.8)
[2019-08-06 09:21] LABS: ALT (SGPT) 31 U/L (8-55); AST (SGOT) 27 U/L (5-34); Albumin 3.8 g/dL (3.4-4.8); Alkaline Phosphatase 105 U/L (40-110); Anion Gap 10 mmol/L (10-20); BUN (Urea Nitrogen) 17 mg/dL (8.4-25.7); Bilirubin, Total 0.8 mg/dL (0.2-1.2); Calc. Creatinine Clearance 0 mL/min (70-130); Calcium 9.1 mg/dL (7.8-10.44); Carbon Dioxide 27 mmol/L (23-31); Chloride 104 mmol/L (98-107); Estimated GFR-MDRD 62; Globulin 2.7 g/dL (2.4-3.5); Glucose 85 mg/dL (83-110); Lipase 18 U/L (8-78); Potassium 4.7 mmol/L (3.5-5.1); Protein, Total 6.5 g/dL (5.8-8.1); Sodium 136 mmol/L (136-145)
[2019-08-06] MEDS ORDERED: Ondansetron PF 4 MG/2 ML Vial ONE (09:56)
[2019-08-06] MEDS ORDERED: Morphine 4 MG/ML VIAL ONE (09:56)
[2019-08-06] MEDS ORDERED: Iopamidol 370 76% 100 ML VIAL ONE (10:33)
[2019-08-06] MEDS ORDERED: Dexamethasone 10 MG/ML VIAL ONE (10:41)
--- NOTE | 2019-08-06 10:57 | CT ---
CT ABDOMEN AND PELVIS WITH IV CONTRAST: Date: 08/06/2019 COMPARISON: 10/20/2018 and 01/04/2013. HISTORY: Left lower quadrant pain. Left flank pain. FINDINGS: Changes of mild gynecomastia, pericardial effusion, and old granulomatous disease in the lower chest, liver, and spleen, are again noted. A small hiatal hernia is present. A 1.0 cm lymph node in the gas trohepatic ligament is stable since exam of 01/04/2013. No new enlarged lymph nodes are seen in the a bdomen or pelvis. The pancreas, adrenal glands, and kidneys are normal. No calcified gallstones are s een. No free air or free fluid is seen in the abdomen or pelvis. The small bowel loops are not abnormally dilated. Appendix is normal. There is sigmoid diverticulosis. No pericolonic inflammatory changes are seen to suggest diverticulitis. There are vascular calcifications without evidence of aneurysmal dil atation of the abdominal aorta. The prostate is enlarged. There are degenerative changes in the spine . IMPRESSION: 1. Pericardial effusion. 2. Old granulomatous disease. 3. Small hiatal hernia. 4. Prostatic enlargement. 5. Sigmoid diverticulosis without diverticulitis. POS: [id number]
== END 2019-08-06 11:35 | disposition home or self-care (01) ==
LOC: ERS 08:22
DX: B02.9 Zoster without complications (principal); I11.0 Hypertensive heart disease with heart failure; I50.9 Heart failure, unspecified; Z79.891 Long term (current) use of opiate analgesic; Z79.899 Other long term (current) drug therapy
CPT/HCPCS: 36415; 74177; 80053; 83605; 83690; 85025; 96374; 96375; J1100; J2270; J2405; Q9967

== ENCOUNTER 2020-12-19 16:19 | Emergency (ER) | payer OTHER ==
[2020-12-19 16:59] LABS: Hemoglobin 14.7 g/dL (14.0-18.0); Mean Corpuscular HGB CONC 33.8 g/dL (32.0-36.0); Mean Corpuscular Hemoglobin 30.8 pg (27.0-31.0); Mean Corpuscular Volume 91.2 fL (78.0-98.0); Mean Platelet Volume 7.7 fL (7.4-10.4); Platelet Count 232 thou/uL (130-400); RBC Distribution Width 12.2 % (11.5-14.5); Red Blood Cell (RBC) Count 4.78 mill/uL (4.70-6.10); White Blood Cell (WBC) Count 8.8 thou/uL (4.8-10.8)
[2020-12-19 17:22] LABS: Band 7 % (5-11); Eosinophils 4 % (0-10); Lymphocytes 7 % (21-51); MDiff Complete? YES; Monocytes 14 % (0-10); Neutrophil 68 % (42-75); Platelet Morphology Comment Appears Adequate; RBC Morphology Normal
[2020-12-19 17:54] LABS: ALT (SGPT) 25 U/L (8-55); AST (SGOT) 43 U/L (5-34); Albumin 3.3 g/dL (3.4-4.8); Alkaline Phosphatase 177 U/L (40-110); Anion Gap 18 mmol/L (10-20); BUN (Urea Nitrogen) 18 mg/dL (8.4-25.7); Calc. Creatinine Clearance 0 mL/min (70-130); Calcium 8.4 mg/dL (7.8-10.44); Carbon Dioxide 20 mmol/L (23-31); Chloride 105 mmol/L (98-107); Globulin 3.8 g/dL (2.4-3.5); Glucose 93 mg/dL (83-110); Potassium 4.8 mmol/L (3.5-5.1); Protein, Total 7.1 g/dL (5.8-8.1); Sodium 138 mmol/L (136-145)
[2020-12-19 18:08] LABS: Bacteria/HPF None Seen HPF (None Seen); Bilirubin Negative (Negative); Blood, Urine 1+ (Negative); Clarity Clear (Clear); Glucose, Urine (Dipstick) Normal (Negative); Ketone, Urine Negative (Negative); Leukocyte Negative Leu/uL (Negative); Nitrite Negative (Negative); Protein, Urine (Dipstick) 30 mg/dL (Neg-Trace); RBC/HPF 0-3 HPF (0-3); Specific Gravity, Urine 1.026 (1.002-1.036); Squamous Epithelial None Seen HPF (0-3); WBC/HPF 0-3 HPF (0-3); pH, Urine 5.5 (5.0-9.0)
== END 2020-12-19 18:40 | disposition home or self-care (01) ==
LOC: ERS 16:19
DX: J18.9 Pneumonia, unspecified organism (principal); I11.0 Hypertensive heart disease with heart failure; I50.9 Heart failure, unspecified; E78.5 Hyperlipidemia, unspecified
CPT/HCPCS: 71045; 80053; 81003; 81015; 83690; 83880; 84443; 84484; 85025; 93005

== ENCOUNTER 2021-09-12 18:12 | Inpatient (IN) | payer MEDICARE, OTHER ==
[2021-09-12 19:09] LABS: Hemoglobin 14.7 g/dL (14.0-18.0); Mean Corpuscular HGB CONC 33.3 g/dL (32.0-36.0); Mean Corpuscular Hemoglobin 30.7 pg (27.0-31.0); Mean Corpuscular Volume 92.2 fL (78.0-98.0); Mean Platelet Volume 7.5 fL (7.4-10.4); Platelet Count 135 thou/uL (130-400); RBC Distribution Width 13.1 % (11.5-14.5); Red Blood Cell (RBC) Count 4.79 mill/uL (4.70-6.10); White Blood Cell (WBC) Count 4.8 thou/uL (4.8-10.8)
[2021-09-12 19:29] LABS: ALT (SGPT) 14 U/L (8-55); AST (SGOT) 23 U/L (5-34); Albumin 3.9 g/dL (3.4-4.8); Alkaline Phosphatase 90 U/L (40-110); Anion Gap 14 mmol/L (10-20); BUN (Urea Nitrogen) 15 mg/dL (8.4-25.7); Bilirubin, Total 0.6 mg/dL (0.2-1.2); Calc. Creatinine Clearance 0 mL/min (70-130); Carbon Dioxide 27 mmol/L (23-31); Chloride 101 mmol/L (98-107); Estimated GFR 52; Globulin 3.1 g/dL (2.4-3.5); Glucose 90 mg/dL (83-110); Sodium 138 mmol/L (136-145)
[2021-09-12 19:30] LABS: Band 12 % (5-11); Eosinophils 1 % (0-10); Lymphocytes 10 % (21-51); MDiff Complete? YES; Monocytes 13 % (0-10); Neutrophil 62 % (42-75); Platelet Morphology Comment Appears Adequate; RBC Morphology Normal; Reactive Lymphocytes 2 % (0-10)
[2021-09-12] MEDS ORDERED: Acetaminophen 500 MG TAB ONE (19:45)
[2021-09-12 20:23] LABS: SARS-CoV-2 NAA Rapid Test DETECTED (NotDetected)
[2021-09-12 20:50] LABS: Bacteria/HPF None Seen HPF (None Seen); Bilirubin Negative (Negative); Blood, Urine 2+ (Negative); Clarity Clear (Clear); Glucose, Urine (Dipstick) Normal (Negative); Ketone, Urine Trace mg/dL (Negative); Leukocyte Negative Leu/uL (Negative); Mucous/LPF Rare LPF (<2+); Nitrite Negative (Negative); Protein, Urine (Dipstick) 30 mg/dL (Neg-Trace); RBC/HPF 21-50 HPF (0-3); Specific Gravity, Urine 1.026 (1.002-1.036); Squamous Epithelial None Seen HPF (0-3); Transitional Epithelial 0-3 HPF (None Seen); Urobilinogen Normal mg/dL (Less than 2); WBC/HPF 0-3 HPF (0-3); pH, Urine 5.5 (5.0-9.0)
[2021-09-12 23:51] VITALS: BMI 25.2
[2021-09-13] MEDS ORDERED: Ondansetron PF 4 MG/2 ML Vial IVP PRN (04:13)
[2021-09-13] MEDS ORDERED: Sodium Chloride 0.9% 1,000 ML IV SCH (04:15)
[2021-09-13] MEDS: Polyethylene Glycol 3350 17 GM Packet PO SCH (08:21)
[2021-09-13 08:52] LABS: #Lymphocytes 0.4 thou/uL (1.20-3.40); #Monocytes 0.6 thou/uL (0.11-0.59); #Neutrophils 5.2 thou/uL (1.40-6.50); %Basophils 0.1 % (0.0-1.0); %Eosinophils 0.1 % (0.0-10.0); %Monocytes 9.2 % (0.0-10.0); %Neutrophils 83.6 % (42.0-75.0); Hemoglobin 14.7 g/dL (14.0-18.0); Mean Corpuscular HGB CONC 32.2 g/dL (32.0-36.0); Mean Corpuscular Hemoglobin 30.1 pg (27.0-31.0); Mean Corpuscular Volume 93.5 fL (78.0-98.0); Mean Platelet Volume 8.3 fL (7.4-10.4); Platelet Count 125 thou/uL (130-400); RBC Distribution Width 13.1 % (11.5-14.5); Red Blood Cell (RBC) Count 4.88 mill/uL (4.70-6.10); White Blood Cell (WBC) Count 6.2 thou/uL (4.8-10.8)
[2021-09-13] MEDS ORDERED: guaiFENesin/DM ER PO SCH (09:00)
[2021-09-13] MEDS ORDERED: Heparin 5,000 UNITS/ML VIAL SC SCH (09:00)
[2021-09-13 09:14] LABS: Anion Gap 15 mmol/L (10-20); BUN (Urea Nitrogen) 18 mg/dL (8.4-25.7); Calc. Creatinine Clearance 49 mL/min (70-130); Calcium 8.6 mg/dL (7.8-10.44); Carbon Dioxide 25 mmol/L (23-31); Chloride 100 mmol/L (98-107); Estimated GFR 56; Glucose 89 mg/dL (83-110); Potassium 3.9 mmol/L (3.5-5.1); Sodium 136 mmol/L (136-145)
[2021-09-13] MEDS ORDERED: Albuterol 200 PUFF (6.7GM INHALER) INH PRN (12:55)
[2021-09-13] MEDS ORDERED: Cyanocobalamin 1000 MCG/ML VIAL IM SCH (13:30)
[2021-09-13] MEDS ORDERED: Multivitamins, Adult 10 ML, Folic Acid 1 MG, Thiamine HCl 100 MG in Dextrose 5 %-0.45 %... IV SCH (14:00)
[2021-09-13] MEDS: Albuterol 200 PUFF (6.7GM INHALER) INH SCH ×3 (14:27→18:04)
[2021-09-13] MEDS: Aspirin 81 mg Enteric Coated Tablet PO SCH (18:03)
[2021-09-13] MEDS: Carvedilol 3.125 MG TAB PO SCH (18:03)
[2021-09-13] MEDS: Cyanocobalamin (Vitamin B-12) 1,000 MCG TAB PO SCH (20:54)
[2021-09-13] MEDS: Ascorbic Acid 500 mg Chewable Tablet PO SCH (20:54)
[2021-09-13] MEDS: Zinc Sulfate 220 MG CAP PO SCH (20:54)
[2021-09-13] MEDS: Cholecalciferol 1,000 UNITS (25 MCG) TAB PO SCH (20:55)
[2021-09-13] MEDS: guaiFENesin ER 600 MG TAB PO SCH (20:55)
[2021-09-13] MEDS: Acetaminophen 325 MG TAB PO PRN (21:54)
[2021-09-14] MEDS: Albuterol 200 PUFF (6.7GM INHALER) INH SCH ×7 (00:16→22:35)
[2021-09-14 06:09] LABS: #Monocytes 0.7 thou/uL (0.11-0.59); #Neutrophils 5.9 thou/uL (1.40-6.50); %Basophils 0.2 % (0.0-1.0); %Eosinophils 0.2 % (0.0-10.0); %Lymphocytes 12.8 % (21.0-51.0); %Monocytes 9.1 % (0.0-10.0); %Neutrophils 77.7 % (42.0-75.0); Hemoglobin 15.4 g/dL (14.0-18.0); Mean Corpuscular Hemoglobin 30.6 pg (27.0-31.0); Mean Corpuscular Volume 92.9 fL (78.0-98.0); Mean Platelet Volume 9.3 fL (7.4-10.4); Platelet Count 91 thou/uL (130-400); RBC Distribution Width 13.2 % (11.5-14.5); Red Blood Cell (RBC) Count 5.04 mill/uL (4.70-6.10); White Blood Cell (WBC) Count 7.5 thou/uL (4.8-10.8)
[2021-09-14 06:42] LABS: ALT (SGPT) 19 U/L (8-55); AST (SGOT) 49 U/L (5-34); Albumin 2.9 g/dL (3.4-4.8); Alkaline Phosphatase 75 U/L (40-110); BUN (Urea Nitrogen) 20 mg/dL (8.4-25.7); Bilirubin, Total 0.6 mg/dL (0.2-1.2); CRP (Inflammatory) 7.14 mg/dL (= or < 0.5); Calc. Creatinine Clearance 51 mL/min (70-130); Calcium 8.4 mg/dL (7.8-10.44); Carbon Dioxide 17 mmol/L (23-31); Chloride 105 mmol/L (98-107); Estimated GFR 59; Globulin 3.5 g/dL (2.4-3.5); Glucose 75 mg/dL (83-110); Magnesium 1.9 mg/dL (1.6-2.6); Phosphorus 3.2 mg/dL (2.3-4.7); Potassium 4.6 mmol/L (3.5-5.1); Protein, Total 6.4 g/dL (5.8-8.1); Sodium 134 mmol/L (136-145)
[2021-09-14 06:43] LABS: Anion Gap 17 mmol/L (10-20)
[2021-09-14] MEDS: Carvedilol 3.125 MG TAB PO SCH ×2 (08:30→16:29)
[2021-09-14] MEDS: guaiFENesin ER 600 MG TAB PO SCH ×2 (08:30→20:01)
[2021-09-14] MEDS: Polyethylene Glycol 3350 17 GM Packet PO SCH (08:30)
[2021-09-14] MEDS: Multivit, Therapeutic 1 TAB PO SCH (08:30)
[2021-09-14] MEDS: Dexamethasone 4 mg/ml Vial SLOW IVP SCH (09:14)
[2021-09-14] MEDS ORDERED: REMDESIVIR 200 MG in Sodium Chloride 0.9% 250 ML 210 ML IV SCH (09:15)
[2021-09-14] MEDS ORDERED: Magnesium 2 GM/50 ML(in water) 2 GM in Premix Bag 1 BAG IVPB SCH (10:00)
[2021-09-14 12:59] LABS: Anion Gap 17 mmol/L (10-20); BUN (Urea Nitrogen) 20 mg/dL (8.4-25.7); Calc. Creatinine Clearance 56 mL/min (70-130); Calcium 8.3 mg/dL (7.8-10.44); Carbon Dioxide 20 mmol/L (23-31); Chloride 101 mmol/L (98-107); Estimated GFR 66; Glucose 97 mg/dL (83-110); Potassium 3.8 mmol/L (3.5-5.1); Sodium 134 mmol/L (136-145)
[2021-09-14] MEDS: Aspirin 81 mg Enteric Coated Tablet PO SCH (16:29)
[2021-09-14] MEDS: Cyanocobalamin (Vitamin B-12) 1,000 MCG TAB PO SCH (20:00)
[2021-09-14] MEDS: Ascorbic Acid 500 mg Chewable Tablet PO SCH (20:00)
[2021-09-14] MEDS: Cholecalciferol 1,000 UNITS (25 MCG) TAB PO SCH (20:01)
[2021-09-14] MEDS: Mometasone 200 MCG/Formoterol 5 MCG 120 PUFF INHALER INH SCH (20:01)
[2021-09-14] MEDS: (RENAL) NIRMATRELVIR 150 MG/RITONAVIR 100 MG TABLET PO SCH (20:01)
[2021-09-14] MEDS: Zinc Sulfate 220 MG CAP PO SCH (20:01)
[2021-09-15] MEDS: Albuterol 200 PUFF (6.7GM INHALER) INH SCH ×6 (02:54→20:48)
[2021-09-15] MEDS: Mometasone 200 MCG/Formoterol 5 MCG 120 PUFF INHALER INH SCH ×2 (05:30→18:53)
[2021-09-15 06:54] LABS: #Lymphocytes 0.7 thou/uL (1.20-3.40); #Monocytes 0.6 thou/uL (0.11-0.59); #Neutrophils 4.5 thou/uL (1.40-6.50); %Basophils 0.2 % (0.0-1.0); %Monocytes 9.6 % (0.0-10.0); %Neutrophils 78.2 % (42.0-75.0); Hemoglobin 14.7 g/dL (14.0-18.0); Mean Corpuscular HGB CONC 32.7 g/dL (32.0-36.0); Mean Corpuscular Hemoglobin 30.6 pg (27.0-31.0); Mean Corpuscular Volume 93.5 fL (78.0-98.0); Mean Platelet Volume 8.7 fL (7.4-10.4); Platelet Count 116 thou/uL (130-400); RBC Distribution Width 13.2 % (11.5-14.5); Red Blood Cell (RBC) Count 4.81 mill/uL (4.70-6.10); White Blood Cell (WBC) Count 5.8 thou/uL (4.8-10.8)
[2021-09-15 06:55] LABS: Anion Gap 15 mmol/L (10-20); BUN (Urea Nitrogen) 21 mg/dL (8.4-25.7); CRP (Inflammatory) 8.25 mg/dL (= or < 0.5); Calc. Creatinine Clearance 54 mL/min (70-130); Calcium 8.6 mg/dL (7.8-10.44); Carbon Dioxide 23 mmol/L (23-31); Chloride 106 mmol/L (98-107); Estimated GFR 63; Glucose 112 mg/dL (83-110); Potassium 4.3 mmol/L (3.5-5.1); Sodium 140 mmol/L (136-145)
[2021-09-15] MEDS ORDERED: REMDESIVIR 100 MG in Sodium Chloride 0.9% 250 ML 230 ML IV SCH (09:00)
[2021-09-15] MEDS ORDERED: Senokot S 8.6-50 MG TAB PO SCH (09:30)
[2021-09-15] MEDS: Multivit, Therapeutic 1 TAB PO SCH (10:41)
[2021-09-15] MEDS: guaiFENesin ER 600 MG TAB PO SCH ×2 (10:41→20:48)
[2021-09-15] MEDS: Dexamethasone 4 mg/ml Vial SLOW IVP SCH (10:42)
[2021-09-15] MEDS: (RENAL) NIRMATRELVIR 150 MG/RITONAVIR 100 MG TABLET PO SCH ×2 (10:42→20:45)
[2021-09-15] MEDS: Polyethylene Glycol 3350 17 GM Packet PO SCH (10:44)
[2021-09-15] MEDS: Carvedilol 3.125 MG TAB PO SCH ×2 (10:59→17:05)
[2021-09-15] MEDS: Aspirin 81 mg Enteric Coated Tablet PO SCH (17:05)
[2021-09-15] MEDS: Cyanocobalamin (Vitamin B-12) 1,000 MCG TAB PO SCH (20:46)
[2021-09-15] MEDS: Acetaminophen 325 MG TAB PO PRN (20:46)
[2021-09-15] MEDS: Zinc Sulfate 220 MG CAP PO SCH (20:47)
[2021-09-15] MEDS: Cholecalciferol 1,000 UNITS (25 MCG) TAB PO SCH (20:47)
[2021-09-15] MEDS: Heparin 5,000 UNITS/ML VIAL SC SCH (20:47)
[2021-09-15] MEDS: Ascorbic Acid 500 mg Chewable Tablet PO SCH (20:47)
[2021-09-15] MEDS: Senokot S 8.6-50 MG TAB PO SCH (20:48)
[2021-09-16] MEDS: Albuterol 200 PUFF (6.7GM INHALER) INH SCH ×5 (02:22→22:47)
[2021-09-16] MEDS: Mometasone 200 MCG/Formoterol 5 MCG 120 PUFF INHALER INH SCH ×2 (06:02→18:09)
[2021-09-16 07:20] LABS: #Lymphocytes 0.6 thou/uL (1.20-3.40); #Monocytes 0.6 thou/uL (0.11-0.59); #Neutrophils 6.2 thou/uL (1.40-6.50); %Basophils 0.2 % (0.0-1.0); %Eosinophils 0.1 % (0.0-10.0); %Lymphocytes 8.5 % (21.0-51.0); %Monocytes 7.6 % (0.0-10.0); %Neutrophils 83.6 % (42.0-75.0); Hemoglobin 15.2 g/dL (14.0-18.0); Mean Corpuscular HGB CONC 32.8 g/dL (32.0-36.0); Mean Corpuscular Hemoglobin 30.7 pg (27.0-31.0); Mean Corpuscular Volume 93.6 fL (78.0-98.0); Mean Platelet Volume 8.7 fL (7.4-10.4); Platelet Count 137 thou/uL (130-400); RBC Distribution Width 13.2 % (11.5-14.5); Red Blood Cell (RBC) Count 4.96 mill/uL (4.70-6.10); White Blood Cell (WBC) Count 7.5 thou/uL (4.8-10.8)
[2021-09-16 07:40] LABS: Anion Gap 13 mmol/L (10-20); BUN (Urea Nitrogen) 22 mg/dL (8.4-25.7); CRP (Inflammatory) 3.54 mg/dL (= or < 0.5); Calc. Creatinine Clearance 66 mL/min (70-130); Calcium 8.5 mg/dL (7.8-10.44); Carbon Dioxide 22 mmol/L (23-31); Chloride 108 mmol/L (98-107); Estimated GFR 80; Glucose 115 mg/dL (83-110); Potassium 4.1 mmol/L (3.5-5.1); Sodium 139 mmol/L (136-145)
[2021-09-16] MEDS: (RENAL) NIRMATRELVIR 150 MG/RITONAVIR 100 MG TABLET PO SCH ×2 (08:51→20:51)
[2021-09-16] MEDS: guaiFENesin ER 600 MG TAB PO SCH ×2 (08:53→20:50)
[2021-09-16] MEDS: Multivit, Therapeutic 1 TAB PO SCH (08:55)
[2021-09-16] MEDS: Polyethylene Glycol 3350 17 GM Packet PO SCH (08:56)
[2021-09-16] MEDS: Dexamethasone 4 mg/ml Vial SLOW IVP SCH (08:56)
[2021-09-16] MEDS: Carvedilol 3.125 MG TAB PO SCH ×2 (09:07→18:08)
[2021-09-16] MEDS: Senokot S 8.6-50 MG TAB PO SCH ×2 (09:08→20:50)
[2021-09-16] MEDS: Heparin 5,000 UNITS/ML VIAL SC SCH ×2 (09:08→20:46)
[2021-09-16] MEDS ORDERED: Amlodipine 5 MG TAB PO SCH (09:30)
[2021-09-16] MEDS: Aspirin 81 mg Enteric Coated Tablet PO SCH (18:08)
[2021-09-16] MEDS: Zinc Sulfate 220 MG CAP PO SCH (20:49)
[2021-09-16] MEDS: Ascorbic Acid 500 mg Chewable Tablet PO SCH (20:49)
[2021-09-16] MEDS: Acetaminophen 325 MG TAB PO PRN (20:49)
[2021-09-16] MEDS: Cholecalciferol 1,000 UNITS (25 MCG) TAB PO SCH (20:49)
[2021-09-16] MEDS: Cyanocobalamin (Vitamin B-12) 1,000 MCG TAB PO SCH (20:50)
[2021-09-17] MEDS: Albuterol 200 PUFF (6.7GM INHALER) INH SCH ×6 (01:38→21:06)
[2021-09-17] MEDS: Mometasone 200 MCG/Formoterol 5 MCG 120 PUFF INHALER INH SCH ×2 (06:34→17:45)
[2021-09-17 06:48] LABS: #Lymphocytes 0.7 thou/uL (1.20-3.40); #Monocytes 0.5 thou/uL (0.11-0.59); #Neutrophils 8.2 thou/uL (1.40-6.50); %Basophils 0.2 % (0.0-1.0); %Lymphocytes 7.5 % (21.0-51.0); %Monocytes 4.7 % (0.0-10.0); %Neutrophils 87.6 % (42.0-75.0); Hemoglobin 15.7 g/dL (14.0-18.0); Mean Corpuscular Volume 93.9 fL (78.0-98.0); Mean Platelet Volume 8.7 fL (7.4-10.4); Platelet Count 156 thou/uL (130-400); RBC Distribution Width 13.2 % (11.5-14.5); Red Blood Cell (RBC) Count 5.07 mill/uL (4.70-6.10); White Blood Cell (WBC) Count 9.4 thou/uL (4.8-10.8)
[2021-09-17 07:01] LABS: Anion Gap 13 mmol/L (10-20); BUN (Urea Nitrogen) 23 mg/dL (8.4-25.7); CRP (Inflammatory) 1.71 mg/dL (= or < 0.5); Calc. Creatinine Clearance 65 mL/min (70-130); Calcium 8.6 mg/dL (7.8-10.44); Carbon Dioxide 23 mmol/L (23-31); Chloride 107 mmol/L (98-107); Estimated GFR 79; Glucose 131 mg/dL (83-110); Potassium 3.8 mmol/L (3.5-5.1); Sodium 139 mmol/L (136-145)
[2021-09-17] MEDS ORDERED: Amlodipine 5 MG TAB PO SCH (09:00)
[2021-09-17] MEDS: Dexamethasone 4 mg/ml Vial SLOW IVP SCH (09:08)
[2021-09-17] MEDS: Multivit, Therapeutic 1 TAB PO SCH (09:08)
[2021-09-17] MEDS: Carvedilol 3.125 MG TAB PO SCH ×2 (09:09→16:13)
[2021-09-17] MEDS: Heparin 5,000 UNITS/ML VIAL SC SCH ×2 (09:09→20:02)
[2021-09-17] MEDS: Senokot S 8.6-50 MG TAB PO SCH ×2 (09:09→20:02)
[2021-09-17] MEDS: guaiFENesin ER 600 MG TAB PO SCH ×2 (09:09→20:02)
[2021-09-17] MEDS: Polyethylene Glycol 3350 17 GM Packet PO SCH (09:09)
[2021-09-17] MEDS: (RENAL) NIRMATRELVIR 150 MG/RITONAVIR 100 MG TABLET PO SCH ×2 (09:22→20:11)
[2021-09-17] MEDS ORDERED: hydrALAZINE 25 MG TAB PO PRN (12:18)
[2021-09-17] MEDS ORDERED: hydrALAZINE 20 MG/ML VIAL SLOW IVP PRN (12:18)
[2021-09-17] MEDS: Aspirin 81 mg Enteric Coated Tablet PO SCH (16:14)
[2021-09-17] MEDS: Cyanocobalamin (Vitamin B-12) 1,000 MCG TAB PO SCH (20:02)
[2021-09-17] MEDS: Ascorbic Acid 500 mg Chewable Tablet PO SCH (20:02)
[2021-09-17] MEDS: Zinc Sulfate 220 MG CAP PO SCH (20:02)
[2021-09-17] MEDS: Cholecalciferol 1,000 UNITS (25 MCG) TAB PO SCH (20:02)
[2021-09-17] MEDS: Lisinopril 2.5 MG TAB PO SCH (20:03)
[2021-09-18] MEDS: Albuterol 200 PUFF (6.7GM INHALER) INH SCH ×3 (02:49→08:14)
[2021-09-18] MEDS: Mometasone 200 MCG/Formoterol 5 MCG 120 PUFF INHALER INH SCH (05:42)
[2021-09-18 07:42] VITALS: BP 161/82; TEMP 97.5
[2021-09-18] MEDS ORDERED: Dexamethasone 4 MG TAB PO SCH (08:00)
[2021-09-18] MEDS: (RENAL) NIRMATRELVIR 150 MG/RITONAVIR 100 MG TABLET PO SCH (08:13)
[2021-09-18] MEDS: guaiFENesin ER 600 MG TAB PO SCH (08:13)
[2021-09-18] MEDS: Multivit, Therapeutic 1 TAB PO SCH (08:13)
[2021-09-18] MEDS: Senokot S 8.6-50 MG TAB PO SCH (08:13)
[2021-09-18] MEDS: Polyethylene Glycol 3350 17 GM Packet PO SCH (08:14)
[2021-09-18] MEDS: Carvedilol 3.125 MG TAB PO SCH (08:14)
[2021-09-18] MEDS: Heparin 5,000 UNITS/ML VIAL SC SCH (08:14)
[2021-09-18] MEDS: Lisinopril 2.5 MG TAB PO SCH (08:14)
== END 2021-09-18 12:51 | DRG 177 ==
LOC: ERS 18:12 → ERHOLD 21:44 → T4-A 21:59 → T4-B 09-13 06:31 → OBSVTOIN 09-13 13:02
PROVIDERS: ADMIT Internal Medicine; ATTEND Internal Medicine
PROC: 8E0ZXY6 Isolation (ICD-10-PCS; principal; 2021-09-13)
PROC: XW033E5 Introduction of Remdesivir Anti-infective into Peripheral Vein, Percutaneous Approach, New Technology Group 5 (ICD-10-PCS; 2021-09-14)
DX: U07.1 COVID-19 (principal); G93.41 Metabolic encephalopathy; J12.82 Pneumonia due to coronavirus disease 2019; I50.42 Chronic combined systolic (congestive) and diastolic (congestive) heart failure; N17.9 Acute kidney failure, unspecified; Z66 Do not resuscitate; I13.0 Hypertensive heart and chronic kidney disease with heart failure and stage 1 through stage 4 chronic kidney disease, or unspecified chronic kidney disease; I25.10 Atherosclerotic heart disease of native coronary artery without angina pectoris; N18.30 Chronic kidney disease, stage 3 unspecified; D69.6 Thrombocytopenia, unspecified; I25.5 Ischemic cardiomyopathy; E78.5 Hyperlipidemia, unspecified; Z79.899 Other long term (current) drug therapy; Z82.49 Family history of ischemic heart disease and other diseases of the circulatory system; Z95.5 Presence of coronary angioplasty implant and graft
CPT/HCPCS: 36415; 71045; 80048; 80053; 81003; 81015; 83605; 83735; 83880; 84100; 84145; 84484; 85025; 86140; 87040; 87086; 93005; 94664; G0378; J0248; J1100; J1644; J3411; J3420; J3475; J7042; J7050; J8540

== ENCOUNTER 2021-10-09 18:59 | Emergency (ER) | payer OTHER ==
[2021-10-09] MEDS ORDERED: Lidocaine 1% PF 5 ML VIAL ONE (20:41)
== END 2021-10-09 21:31 | disposition home or self-care (01) ==
LOC: ERS 18:59
DX: S09.90XA Unspecified injury of head, initial encounter (principal); S01.111A Laceration without foreign body of right eyelid and periocular area, initial encounter; I25.10 Atherosclerotic heart disease of native coronary artery without angina pectoris; I11.0 Hypertensive heart disease with heart failure; I50.9 Heart failure, unspecified; E78.5 Hyperlipidemia, unspecified; Z79.82 Long term (current) use of aspirin; Z79.899 Other long term (current) drug therapy; W01.198A Fall on same level from slipping, tripping and stumbling with subsequent striking against other object, initial encounter
CPT/HCPCS: 12011; 70450; 70486; 72125

== ENCOUNTER 2021-11-30 15:43 | Emergency (ER) | payer OTHER ==
[2021-11-30 16:38] LABS: #Eosinphils 0.6 thou/uL (0.0-0.7); #Monocytes 0.9 thou/uL (0.11-0.59); #Neutrophils 6.9 thou/uL (1.40-6.50); %Basophils 0.2 % (0.0-1.0); %Eosinophils 6.4 % (0.0-10.0); %Lymphocytes 10.1 % (21.0-51.0); %Monocytes 9.6 % (0.0-10.0); %Neutrophils 73.7 % (42.0-75.0); Hemoglobin 13.5 g/dL (14.0-18.0); Mean Corpuscular HGB CONC 31.9 g/dL (32.0-36.0); Mean Corpuscular Hemoglobin 30.6 pg (27.0-31.0); Mean Corpuscular Volume 95.8 fL (78.0-98.0); Mean Platelet Volume 7.7 fL (7.4-10.4); Platelet Count 188 thou/uL (130-400); RBC Distribution Width 13.7 % (11.5-14.5); Red Blood Cell (RBC) Count 4.42 mill/uL (4.70-6.10); White Blood Cell (WBC) Count 9.4 thou/uL (4.8-10.8)
[2021-11-30 16:54] LABS: ALT (SGPT) 11 U/L (8-55); AST (SGOT) 22 U/L (5-34); Albumin 3.5 g/dL (3.4-4.8); Alkaline Phosphatase 103 U/L (40-110); Anion Gap 13 mmol/L (10-20); BUN (Urea Nitrogen) 17 mg/dL (8.4-25.7); Bilirubin, Total 0.8 mg/dL (0.2-1.2); Calc. Creatinine Clearance 0 mL/min (70-130); Calcium 8.8 mg/dL (7.8-10.44); Carbon Dioxide 23 mmol/L (23-31); Chloride 100 mmol/L (98-107); Estimated GFR 58; Globulin 3.6 g/dL (2.4-3.5); Glucose 89 mg/dL (83-110); Protein, Total 7.1 g/dL (5.8-8.1); Sodium 132 mmol/L (136-145)
[2021-11-30] MEDS ORDERED: cefTRIAXone\\ROCEPHIN 1 GM VIAL ONE (17:24)
[2021-11-30] MEDS ORDERED: Sterile Water 10 ML ONE (17:24)
[2021-11-30] MEDS ORDERED: Dexamethasone 10 MG/ML VIAL ONE (17:24)
== END 2021-11-30 18:07 | disposition home or self-care (01) ==
LOC: ERS 15:43
DX: J18.9 Pneumonia, unspecified organism (principal); I25.10 Atherosclerotic heart disease of native coronary artery without angina pectoris; E78.5 Hyperlipidemia, unspecified; I11.0 Hypertensive heart disease with heart failure; I50.9 Heart failure, unspecified; Z79.82 Long term (current) use of aspirin; Z79.899 Other long term (current) drug therapy
CPT/HCPCS: 36415; 71045; 80053; 83605; 84484; 85025; 87040; 94640; 96372; J0696; J1100; J7620

== ENCOUNTER 2023-03-10 15:21 | Inpatient (IN) | payer MEDICARE, OTHER ==
[2023-03-10] MEDS ORDERED: Furosemide 40 MG (4 mL) VIAL ONE (15:57)
[2023-03-10] MEDS ORDERED: dilTIAZem 25 MG/5 ML VIAL ONE ×2 (15:58→18:16)
[2023-03-10 17:03] LABS: #Basophils 0.1 thou/uL (0.0-0.2); #Eosinphils 0.3 thou/uL (0.0-0.7); #Monocytes 0.9 thou/uL (0.11-0.59); #Neutrophils 5.1 thou/uL (1.40-6.50); %Basophils 0.8 % (0.0-1.0); %Eosinophils 3.6 % (0.0-10.0); %Lymphocytes 17.2 % (21.0-51.0); %Monocytes 11.9 % (0.0-10.0); %Neutrophils 66.2 % (42.0-75.0); Hematocrit 49.3 % (42.0-52.0); Hemoglobin 15.9 g/dL (14.0-18.0); Mean Corpuscular HGB CONC 32.3 g/dL (32.0-36.0); Mean Corpuscular Hemoglobin 30.6 pg (27.0-31.0); Mean Platelet Volume 10.6 fL (7.4-10.4); Platelet Count 227 10x3/uL (130-400); RBC Distribution Width 14.3 % (11.5-14.5); Red Blood Cell (RBC) Count 5.19 mill/uL (4.70-6.10); White Blood Cell (WBC) Count 7.7 10x3/uL (4.8-10.8)
[2023-03-10 17:26] LABS: ALT (SGPT) 20 U/L (8-55); AST (SGOT) 25 U/L (5-34); Albumin 4.1 g/dL (3.4-4.8); Alkaline Phosphatase 122 U/L (40-110); Anion Gap 14 mmol/L (10-20); BUN (Urea Nitrogen) 20 mg/dL (8.4-25.7); Bilirubin, Total 0.9 mg/dL (0.2-1.2); Calc. Creatinine Clearance 0 mL/min (70-130); Calcium 9.2 mg/dL (7.8-10.44); Carbon Dioxide 21 mmol/L (23-31); Chloride 106 mmol/L (98-107); Estimated GFR 52; Globulin 3.1 g/dL (2.4-3.5); Glucose 102 mg/dL (83-110); Magnesium 1.9 mg/dL (1.6-2.6); Potassium 4.6 mmol/L (3.5-5.1); Protein, Total 7.2 g/dL (5.8-8.1); Sodium 136 mmol/L (136-145)
[2023-03-10 17:36] LABS: Troponin I 0.028 ng/mL (< 0.028)
[2023-03-10] MEDS ORDERED: Communication Order-Pharmacy FS SCH (18:51)
[2023-03-10] MEDS ORDERED: Acetaminophen 650 MG Suppository PR PRN (18:52)
[2023-03-10] MEDS ORDERED: Ondansetron PF 4 MG/2 ML Vial IVP PRN (18:52)
[2023-03-10] MEDS ORDERED: Artificial Tear Sol 15 ML BOT EA EYE PRN (18:52)
[2023-03-10] MEDS ORDERED: Ondansetron ODT 4 MG TAB PO PRN (18:52)
[2023-03-10] MEDS ORDERED: Moisturizing Cream (Eucerin) 113 GM JAR TOP PRN (18:52)
[2023-03-10] MEDS ORDERED: Loperamide HCl 2 MG CAP PO PRN ×2 (18:52)
[2023-03-10] MEDS ORDERED: diphenhydrAMINE 25 MG CAP PO PRN (18:52)
[2023-03-10] MEDS ORDERED: Acetaminophen 325 MG TAB PO PRN (18:52)
[2023-03-10] MEDS ORDERED: dilTIAZem 125 MG in Sodium Chloride 0.9% 100 ML IVPB SCH (19:00)
[2023-03-10] MEDS ORDERED: Polyethylene Glycol 3350 17 GM Packet PO SCH (19:15)
[2023-03-10 19:47] LABS: Hematocrit 45.9 % (42.0-52.0); Hemoglobin 15.5 g/dL (14.0-18.0); Platelet Count 208 10x3/uL (130-400)
[2023-03-10 20:08] LABS: Magnesium 1.8 mg/dL (1.6-2.6); Phosphorus 3.4 mg/dL (2.3-4.7)
[2023-03-10 20:23] LABS: Troponin I 0.033 ng/mL (< 0.028)
[2023-03-10] MEDS ORDERED: Atorvastatin Calcium 40 MG TAB ONE (20:40)
[2023-03-10] MEDS ORDERED: Polyethylene Glycol 3350 17 GM Packet ONE (20:40)
[2023-03-10] MEDS ORDERED: Carvedilol 6.25 MG TAB ONE (20:40)
[2023-03-10] MEDS ORDERED: QUEtiapine 25 MG TAB ONE (20:40)
[2023-03-10] MEDS ORDERED: Atorvastatin Calcium 20 MG TAB ONE (20:42)
[2023-03-10] MEDS: Carvedilol 3.125 MG TAB PO SCH (20:48)
[2023-03-10] MEDS: Atorvastatin Calcium 20 MG TAB PO SCH (20:48)
[2023-03-10] MEDS ORDERED: QUEtiapine 25 MG TAB PO SCH (21:00)
[2023-03-10] MEDS ORDERED: Famotidine 20 MG TAB PO SCH (21:00)
[2023-03-10] MEDS ORDERED: Famotidine/PF 20 mg/2ml Vial SLOW IVP SCH (21:00)
[2023-03-10] MEDS ORDERED: Enoxaparin 100 MG (1 mL) SYRINGE ONE (21:46)
[2023-03-10] MEDS ORDERED: dilTIAZem 125 MG/25 ML SDV ONE (21:46)
[2023-03-10] MEDS: Enoxaparin 100 MG (1 mL) SYRINGE SC SCH (21:57)
[2023-03-10 23:45] LABS: Troponin I 0.025 ng/mL (< 0.028)
[2023-03-11] MEDS ORDERED: Furosemide 40 MG (4 mL) VIAL ONE (05:57)
[2023-03-11] MEDS ORDERED: Furosemide 40 MG (4 mL) VIAL SLOW IVP SCH (06:00)
[2023-03-11 06:18] LABS: #Basophils 0.1 thou/uL (0.0-0.2); #Eosinphils 0.3 thou/uL (0.0-0.7); #Monocytes 0.9 thou/uL (0.11-0.59); #Neutrophils 4.2 thou/uL (1.40-6.50); %Basophils 0.7 % (0.0-1.0); %Eosinophils 4.5 % (0.0-10.0); %Lymphocytes 21.4 % (21.0-51.0); %Monocytes 12.5 % (0.0-10.0); %Neutrophils 60.6 % (42.0-75.0); Hematocrit 42.9 % (42.0-52.0); Hemoglobin 14.1 g/dL (14.0-18.0); Mean Corpuscular HGB CONC 32.9 g/dL (32.0-36.0); Mean Corpuscular Hemoglobin 30.1 pg (27.0-31.0); Mean Platelet Volume 10.6 fL (7.4-10.4); Platelet Count 182 10x3/uL (130-400); RBC Distribution Width 14.2 % (11.5-14.5); Red Blood Cell (RBC) Count 4.69 mill/uL (4.70-6.10)
[2023-03-11 06:19] LABS: Mean Corpuscular Volume 91.5 fl (78.0-98.0)
[2023-03-11] MEDS: Furosemide 40 MG (4 mL) VIAL SLOW IVP SCH (06:27)
[2023-03-11 06:45] LABS: Anion Gap 12 mmol/L (10-20); BUN (Urea Nitrogen) 18 mg/dL (8.4-25.7); Calc. Creatinine Clearance 47 mL/min (70-130); Calcium 8.6 mg/dL (7.8-10.44); Carbon Dioxide 23 mmol/L (23-31); Chloride 107 mmol/L (98-107); Estimated GFR 53; Glucose 84 mg/dL (83-110); Potassium 3.4 mmol/L (3.5-5.1); Sodium 139 mmol/L (136-145)
[2023-03-11] MEDS ORDERED: Magnesium 2 GM/50 ML(in water) 2 GM in Premix 1 BAG IVPB SCH (08:00)
[2023-03-11] MEDS ORDERED: Potassium Chloride 20 MEQ TAB PO SCH (08:00)
[2023-03-11] MEDS ORDERED: Electrolyte Replacement Protocol 1 EACH FS SCH (08:00)
[2023-03-11] MEDS ORDERED: Electrolyte Replacement Protocol FS PRN (08:00)
[2023-03-11] MEDS ORDERED: Potassium Chloride 20 MEQ TAB ONE (09:31)
[2023-03-11] MEDS ORDERED: Magnesium 2 GM/50 ML BAG (IN WATER) ONE (09:31)
[2023-03-11] MEDS ORDERED: Polyethylene Glycol 3350 17 GM Packet ONE (09:31)
[2023-03-11] MEDS ORDERED: Aspirin Chewable 81 MG TAB ONE (09:31)
[2023-03-11] MEDS ORDERED: Enoxaparin 100 MG (1 mL) SYRINGE ONE (09:32)
[2023-03-11] MEDS ORDERED: dilTIAZem CD 120 MG CAP PO SCH (10:00)
[2023-03-11] MEDS: Enoxaparin 100 MG (1 mL) SYRINGE SC SCH ×2 (11:23→22:20)
[2023-03-11] MEDS: Aspirin Chewable 81 MG TAB PO SCH (11:23)
[2023-03-11] MEDS: Polyethylene Glycol 3350 17 GM Packet PO SCH (11:24)
[2023-03-11] MEDS: Allopurinol 100 MG TAB PO SCH (12:41)
[2023-03-11] MEDS ORDERED: Amiodarone 200 MG TAB PO SCH ×2 (12:45→21:00)
[2023-03-11] MEDS ORDERED: FLU VACC QS2023(65UP)/MF59C/PF 60 MCG/0.5 ML SYRINGE IM ONE (14:45)
[2023-03-11] MEDS: Carvedilol 3.125 MG TAB PO SCH (15:14)
[2023-03-11] MEDS: QUEtiapine 25 MG TAB PO SCH (22:18)
[2023-03-11] MEDS: Amiodarone 200 MG TAB PO SCH (22:19)
[2023-03-11] MEDS: Atorvastatin Calcium 20 MG TAB PO SCH (22:20)
[2023-03-12 01:29] LABS: Potassium 3.8 mmol/L (3.5-5.1)
[2023-03-12 05:27] LABS: Anion Gap 11 mmol/L (10-20); BUN (Urea Nitrogen) 19 mg/dL (8.4-25.7); Calc. Creatinine Clearance 50 mL/min (70-130); Calcium 8.4 mg/dL (7.8-10.44); Carbon Dioxide 25 mmol/L (23-31); Chloride 105 mmol/L (98-107); Estimated GFR 56; Glucose 96 mg/dL (83-110); Magnesium 1.8 mg/dL (1.6-2.6); Potassium 3.6 mmol/L (3.5-5.1); Sodium 137 mmol/L (136-145)
[2023-03-12] MEDS: Furosemide 40 MG (4 mL) VIAL SLOW IVP SCH (06:12)
[2023-03-12] MEDS ORDERED: Magnesium 2 GM/50 ML(in water) 2 GM in Premix 1 BAG IVPB SCH (07:00)
[2023-03-12 07:06] LABS: Bacteria/HPF None Seen HPF (None Seen); RBC/HPF 0-3 HPF (0-3); Squamous Epithelial None Seen HPF (0-3); WBC/HPF 0-3 HPF (0-3)
[2023-03-12 07:43] VITALS: BMI 26.5
[2023-03-12] MEDS: Polyethylene Glycol 3350 17 GM Packet PO SCH (08:23)
[2023-03-12] MEDS: Allopurinol 100 MG TAB PO SCH (08:23)
[2023-03-12] MEDS: Amiodarone 200 MG TAB PO SCH ×3 (08:24→20:25)
[2023-03-12] MEDS: Aspirin Chewable 81 MG TAB PO SCH (08:24)
[2023-03-12] MEDS: Enoxaparin 100 MG (1 mL) SYRINGE SC SCH ×2 (08:24→20:25)
[2023-03-12] MEDS ORDERED: dilTIAZem CD 120 MG CAP PO SCH (09:00)
[2023-03-12] MEDS ORDERED: Haloperidol Lactate 5 MG/ML VIAL SLOW IVP SCH (20:00)
[2023-03-12] MEDS: Atorvastatin Calcium 20 MG TAB PO SCH (20:25)
[2023-03-12] MEDS: QUEtiapine 25 MG TAB PO SCH (20:25)
[2023-03-13 05:18] LABS: Hematocrit 42.5 % (42.0-52.0); Hemoglobin 14.2 g/dL (14.0-18.0); Platelet Count 169 10x3/uL (130-400)
[2023-03-13 05:47] LABS: Calc. Creatinine Clearance 42 mL/min (70-130); Estimated GFR 44; Magnesium 2.1 mg/dL (1.6-2.6); Phosphorus 3.7 mg/dL (2.3-4.7)
[2023-03-13] MEDS: Furosemide 40 MG (4 mL) VIAL SLOW IVP SCH ×2 (06:31→14:28)
[2023-03-13] MEDS: Polyethylene Glycol 3350 17 GM Packet PO SCH (07:59)
[2023-03-13] MEDS: Carvedilol 6.25 MG TAB PO SCH ×2 (08:00→17:48)
[2023-03-13] MEDS: Aspirin Chewable 81 MG TAB PO SCH (08:01)
[2023-03-13] MEDS: Sacubitril 24MG/Valsartan 26 MG TAB PO SCH ×2 (08:02→20:54)
[2023-03-13] MEDS: Amiodarone 200 MG TAB PO SCH ×3 (08:04→20:55)
[2023-03-13] MEDS: Allopurinol 100 MG TAB PO SCH (08:04)
[2023-03-13] MEDS: Empagliflozin 10 MG TAB PO SCH (08:05)
[2023-03-13] MEDS: Enoxaparin 100 MG (1 mL) SYRINGE SC SCH ×2 (08:05→20:55)
[2023-03-13] MEDS ORDERED: Haloperidol Lactate 5 MG/ML VIAL SLOW IVP SCH ×2 (20:00→22:45)
[2023-03-13] MEDS: QUEtiapine 25 MG TAB PO SCH (20:55)
[2023-03-13] MEDS: Atorvastatin Calcium 20 MG TAB PO SCH (20:55)
[2023-03-14 04:03] LABS: #Eosinphils 0.3 thou/uL (0.0-0.7); #Monocytes 1.1 thou/uL (0.11-0.59); %Basophils 0.4 % (0.0-1.0); %Eosinophils 3.5 % (0.0-10.0); %Lymphocytes 17.1 % (21.0-51.0); %Monocytes 13.8 % (0.0-10.0); %Neutrophils 64.9 % (42.0-75.0); Hematocrit 41.5 % (42.0-52.0); Hemoglobin 14.1 g/dL (14.0-18.0); Mean Corpuscular Hemoglobin 30.5 pg (27.0-31.0); Mean Corpuscular Volume 89.8 fl (78.0-98.0); Mean Platelet Volume 10.6 fL (7.4-10.4); Platelet Count 181 10x3/uL (130-400); RBC Distribution Width 13.9 % (11.5-14.5); Red Blood Cell (RBC) Count 4.62 mill/uL (4.70-6.10); White Blood Cell (WBC) Count 7.6 10x3/uL (4.8-10.8)
[2023-03-14 04:24] LABS: Anion Gap 13 mmol/L (10-20); BUN (Urea Nitrogen) 20 mg/dL (8.4-25.7); Calc. Creatinine Clearance 35 mL/min (70-130); Calcium 8.3 mg/dL (7.8-10.44); Carbon Dioxide 28 mmol/L (23-31); Chloride 98 mmol/L (98-107); Estimated GFR 36; Glucose 98 mg/dL (83-110); Potassium 3.4 mmol/L (3.5-5.1); Sodium 136 mmol/L (136-145)
[2023-03-14 08:55] LABS: #Eosinphils 0.3 thou/uL (0.0-0.7); #Monocytes 0.9 thou/uL (0.11-0.59); #Neutrophils 4.7 thou/uL (1.40-6.50); %Basophils 0.6 % (0.0-1.0); %Eosinophils 4.1 % (0.0-10.0); %Lymphocytes 17.6 % (21.0-51.0); %Monocytes 12.4 % (0.0-10.0); Hematocrit 45.1 % (42.0-52.0); Hemoglobin 14.9 g/dL (14.0-18.0); Mean Corpuscular Hemoglobin 29.6 pg (27.0-31.0); Mean Corpuscular Volume 89.7 fl (78.0-98.0); Mean Platelet Volume 10.2 fL (7.4-10.4); Platelet Count 183 10x3/uL (130-400); RBC Distribution Width 13.9 % (11.5-14.5); Red Blood Cell (RBC) Count 5.03 mill/uL (4.70-6.10); White Blood Cell (WBC) Count 7.2 10x3/uL (4.8-10.8)
[2023-03-14 09:29] LABS: Anion Gap 14 mmol/L (10-20); BUN (Urea Nitrogen) 19 mg/dL (8.4-25.7); Calc. Creatinine Clearance 37 mL/min (70-130); Calcium 8.7 mg/dL (7.8-10.44); Carbon Dioxide 28 mmol/L (23-31); Chloride 99 mmol/L (98-107); Estimated GFR 40; Glucose 88 mg/dL (83-110); Potassium 3.7 mmol/L (3.5-5.1); Sodium 137 mmol/L (136-145)
[2023-03-14] MEDS ORDERED: Ketamine In 0.9 % NaCl 50 MG/5 ML SYRINGE ONE (14:31)
[2023-03-14] MEDS ORDERED: PROPOFOL 200 MG/20 ML VIAL ONE (14:44)
[2023-03-14] MEDS ORDERED: Lidocaine 1% PF 5 ML VIAL ONE (14:44)
[2023-03-14 16:52] LABS: #Eosinphils 0.2 thou/uL (0.0-0.7); #Monocytes 0.9 thou/uL (0.11-0.59); #Neutrophils 5.8 thou/uL (1.40-6.50); %Basophils 0.4 % (0.0-1.0); %Eosinophils 2.9 % (0.0-10.0); %Lymphocytes 14.7 % (21.0-51.0); %Monocytes 10.9 % (0.0-10.0); %Neutrophils 70.9 % (42.0-75.0); Hematocrit 47.8 % (42.0-52.0); Hemoglobin 15.5 g/dL (14.0-18.0); Mean Corpuscular HGB CONC 32.4 g/dL (32.0-36.0); Mean Corpuscular Hemoglobin 29.8 pg (27.0-31.0); Mean Corpuscular Volume 91.9 fl (78.0-98.0); Mean Platelet Volume 10.8 fL (7.4-10.4); Platelet Count 157 10x3/uL (130-400); White Blood Cell (WBC) Count 8.2 10x3/uL (4.8-10.8)
[2023-03-14] MEDS: Aspirin Chewable 81 MG TAB PO SCH (16:57)
[2023-03-14] MEDS: Allopurinol 100 MG TAB PO SCH (16:57)
[2023-03-14] MEDS: Empagliflozin 10 MG TAB PO SCH (16:57)
[2023-03-14] MEDS: Amiodarone 200 MG TAB PO SCH ×2 (16:58→22:04)
[2023-03-14] MEDS: Enoxaparin 100 MG (1 mL) SYRINGE SC SCH ×2 (16:58→22:27)
[2023-03-14] MEDS: Carvedilol 6.25 MG TAB PO SCH ×2 (16:58→18:25)
[2023-03-14] MEDS: Sacubitril 24MG/Valsartan 26 MG TAB PO SCH ×2 (16:59→22:03)
[2023-03-14] MEDS: Polyethylene Glycol 3350 17 GM Packet PO SCH (16:59)
[2023-03-14 17:18] LABS: Anion Gap 14 mmol/L (10-20); BUN (Urea Nitrogen) 18 mg/dL (8.4-25.7); Calc. Creatinine Clearance 39 mL/min (70-130); Calcium 8.3 mg/dL (7.8-10.44); Carbon Dioxide 25 mmol/L (23-31); Chloride 101 mmol/L (98-107); Estimated GFR 42; Glucose 76 mg/dL (83-110); Potassium 3.7 mmol/L (3.5-5.1); Sodium 136 mmol/L (136-145)
[2023-03-14] MEDS: QUEtiapine 25 MG TAB PO SCH (22:05)
[2023-03-14] MEDS: Atorvastatin Calcium 20 MG TAB PO SCH (22:05)
[2023-03-15] MEDS: Allopurinol 100 MG TAB PO SCH (09:12)
[2023-03-15] MEDS: Sacubitril 24MG/Valsartan 26 MG TAB PO SCH (09:12)
[2023-03-15] MEDS: Aspirin Chewable 81 MG TAB PO SCH (09:13)
[2023-03-15] MEDS: Empagliflozin 10 MG TAB PO SCH (09:13)
[2023-03-15] MEDS: Carvedilol 6.25 MG TAB PO SCH ×2 (09:13→17:16)
[2023-03-15] MEDS: Enoxaparin 100 MG (1 mL) SYRINGE SC SCH (09:14)
[2023-03-15] MEDS: Amiodarone 200 MG TAB PO SCH (09:28)
[2023-03-15] MEDS: Polyethylene Glycol 3350 17 GM Packet PO SCH (09:31)
[2023-03-15 12:41] LABS: Magnesium 2.1 mg/dL (1.6-2.6)
[2023-03-15] MEDS ORDERED: traZODone HCl 50 MG TAB PO PRN (15:56)
[2023-03-15 17:54] VITALS: BP 125/71; TEMP 97.8
[2023-03-15] MEDS ORDERED: Apixaban 2.5 MG TAB PO SCH (21:00)
== END 2023-03-15 19:44 | disposition home or self-care (01) | DRG 291 ==
LOC: ERS 15:21 → 2SE 18:36 → ERHOLD 18:37 → 2SE 03-11 12:47 → OBSVTOIN 03-11 16:10
PROVIDERS: ADMIT Family Medicine; ATTEND Internal Medicine
PROC: B24BZZ4 Ultrasonography of Heart with Aorta, Transesophageal (ICD-10-PCS; principal; 2023-03-14)
PROC: 5A2204Z Restoration of Cardiac Rhythm, Single (ICD-10-PCS; 2023-03-14)
DX: I11.0 Hypertensive heart disease with heart failure (principal); I50.43 Acute on chronic combined systolic (congestive) and diastolic (congestive) heart failure; N17.9 Acute kidney failure, unspecified; I48.92 Unspecified atrial flutter; I25.10 Atherosclerotic heart disease of native coronary artery without angina pectoris; E78.5 Hyperlipidemia, unspecified; F03.90 Unspecified dementia, unspecified severity, without behavioral disturbance, psychotic disturbance, mood disturbance, and anxiety; I42.0 Dilated cardiomyopathy; I48.0 Paroxysmal atrial fibrillation; G72.89 Other specified myopathies; M10.9 Gout, unspecified; Z95.5 Presence of coronary angioplasty implant and graft; Z79.899 Other long term (current) drug therapy; Z86.16 Personal history of COVID-19; Z98.890 Other specified postprocedural states; Z79.82 Long term (current) use of aspirin; Z82.49 Family history of ischemic heart disease and other diseases of the circulatory system; Z79.51 Long term (current) use of inhaled steroids
CPT/HCPCS: 36415; 36416; 80048; 81015; 82565; 83735; 83880; 84100; 84439; 84443; 84481; 84484; 85014; 85018; 85025; 85049; 92960; 93005; 93010; 93306; 93312; 96374; 96375; 96376; 97139; J1630; J1650; J1940; J2704; J3475; J3490